=== PATIENT | male | born 1965 | race Caucasian/White ===

== ENCOUNTER → 2017-06-26 09:58 | Outpatient (CLI) | payer BC, SELFPAY ==
--- NOTE | 2017-06-26 10:05 | XR_ITS ---
XR knee LT 3V HISTORY: Knee pain ITS.REASON: OA ORDERING PHYSICIAN: Mingo Borjas MD PATIENT AGE: 51 years COMPARISON: None FINDINGS: No fracture or dislocation. No lytic or blastic change. Normal mineralization. There are mild tricompartmental osteoarthritic changes with small osteophytes. Small suprapatellar effusion also suspected. IMPRESSION: Mild osteoarthritis with knee joint effusion
== END ==
PROVIDERS: PCP Internal Medicine Adolescent Medicine; Visit Provider Internal Medicine Adolescent Medicine
DX: M17.12 Unilateral primary osteoarthritis, left knee (principal)
CPT/HCPCS: 73562

== ENCOUNTER 2017-07-17 15:00 | Outpatient (RCR) | payer BC, SELFPAY | END 2017-07-17 15:01 | disposition home or self-care (01) | LOC: PT 15:00 | PROVIDERS: Family Provider Internal Medicine Adolescent Medicine; PCP Internal Medicine Adolescent Medicine; Visit Provider Orthopaedic Surgery | DX: M25.562 Pain in left knee (principal) | CPT/HCPCS: 97010; 97014; 97033; 97110; G0283 ==

== ENCOUNTER → 2018-02-21 14:29 | Outpatient (CLI) | payer BC, SELFPAY ==
--- NOTE | 2018-02-21 | NVE_ITS ---
Venous Exam Indications: 729.5 Pain in limb. IMPRESSIONS Acute superficial vein thrombosis involving the superficial veins of the left upper extremity History: Left upper extremity pain. Risk factors: Hypertension. Recent trauma. Patient had oral surgery 02/09/18 with multiple IV sticks in the left arm. He was seen in the [facility] 02/20/18 for pain, redness, and heat in the left forearm. He has been treated with antibiotics since the surgery. Left upper extremity venous duplex. Doppler flow study including spectral analysis, color and high scale imaging. Location: Vascular laboratory. Patient status: Outpatient. CRITICAL FINDINGS - Reported to: Dr. Al Trent - Read back and verified. - 02/21/18 - 1530 - XU SVT in cephalic vein Tables: Venous flow and imaging: + + +--------+ Location Flow properties Comments + + +--------+ Left internal jugular Normal phasicity; spontaneous; -------- compressible + + +--------+ Left subclavian Normal phasicity; spontaneous; normal -------- augmentation; compressible + + +--------+ Left axillary Normal phasicity; spontaneous; normal -------- augmentation; compressible + + +--------+ Left brachial Normal phasicity; spontaneous; normal -------- augmentation; compressible + + +--------+ Left cephalic Diminished phasicity; noncompressible SVT seen + + +--------+ Left basilic Normal phasicity ; spontaneous; normal -------- augmentation; compressible + + +--------+ Left radial Compressible -------- + + +--------+ Left ulnar Compressible -------- + + +--------+ Right subclavian Normal phasicity; spontaneous; normal -------- augmentation; compressible + + +--------+ (Report amended ) Electronically signed by: Marty Caro [id number]
== END ==
PROVIDERS: PCP Internal Medicine Adolescent Medicine; Visit Provider Emergency Medicine
DX: T80.1XXA Vascular complications following infusion, transfusion and therapeutic injection, initial encounter (principal); M79.632 Pain in left forearm
CPT/HCPCS: 93971

== ENCOUNTER → 2018-03-04 09:22 | Outpatient (CLI) | payer BC, SELFPAY ==
[2018-03-04 09:50] LABS: Basophils % 0.6 % (0.1-2.0); Eosinophils # 0.1 K/mm3 (0.0-0.4); Eosinophils % 1.1 % (0.1-12.0); Hemoglobin 13.7 g/dL (14.1-18.0); Lymphocytes # 1.8 K/mm3 (0.7-4.5); Lymphocytes % 29.5 K/mm3 (10-50); Mean Corpuscular HGB Conc 31.9 g/dL (31.8-35.4); Mean Corpuscular Hemoglobin 28.2 pg (27.0-31.2); Mean Corpuscular Volume 88.4 fl (80-94); Mean Platelet Volume 7.3 fl (7.4-10.4); Monocytes # 0.5 K/mm3 (0.1-1.0); Monocytes % 7.9 % (1.7-9.3); Neutrophils # 3.8 K/mm3 (1.8-7.8); Neutrophils % 60.9 % (37.0-80.0); Platelet Count 190 K/mm3 (142-424); Red Blood Count 4.87 M/mm3 (4.60-6.20); Red Cell Distribution Width 12.8 % (11.5-17.5); White Blood Count 6.2 K/mm3 (4.8-10.8)
[2018-03-04 10:40] LABS: Alanine Aminotransferase 39 U/L (12-78); Albumin Level 3.2 gm/dL (3.4-5.0); Alkaline Phosphatase 70 U/L (46-116); Anion Gap 9.1 mEq/L (5-15); Aspartate Amino Transferase 19 U/L (15-37); Bilirubin,Total 0.7 mg/dL (0.2-1.0); Blood Urea Nitrogen 13 mg/dL (7-18); Calcium 8.6 mg/dL (8.5-10.1); Carbon Dioxide 32 mmol/L (21.0-32.0); Chloride 107 mmol/L (98-107); Chol/HDL Ratio 5.7 (1-3.5); Cholesterol 171 mg/dL (140-200); Creatinine,Serum 0.95 mg/dL (0.70-1.30); Estimated Glomerular Filt Rate 84 ml/min (>60); Free Thyroxine Index 2.8 ug/dL (5.93-13.13); GFR (African American) 101 ML/MIN (>60); Globulin 3.1 gm/dl (1.3-3.2); Glucose 100 mg/dL (74-106); HDL Cholesterol 30 mg/dL (27-67); LDL Cholesterol 106 mg/dL (0-130); Potassium 4.1 mmoL/L (3.5-5.1); Sodium 144 mmol/L (136-145); T4 (Thyroxine) 8.1 ug/dl (4.7-13.3); Thyroid Stimulating Hormone 1.84 uIU/ml (0.358-3.740); Total Protein,Serum 6.3 gm/dL (6.4-8.2); Triglycerides 174 mg/dL (30-200); Triiodothryronine (T3) Uptake 34 % (31-39); VLDL Cholesterol 35 mg/dL (0-40)
[2018-03-05 17:29] LABS: Testosterone,Total 412 ng/dL (264-916); Vitamin B12 1272 pg/mL (232-1245); Vitamin D 25 Hydroxy 24.3 ng/mL (30.0-100.0)
== END ==
PROVIDERS: PCP Internal Medicine Adolescent Medicine; Visit Provider Internal Medicine Adolescent Medicine
DX: R53.83 Other fatigue (principal); R53.81 Other malaise; N52.9 Male erectile dysfunction, unspecified
CPT/HCPCS: 36415; 80053; 80061; 82607; 82652; 84403; 84436; 84443; 84479; 85025

== ENCOUNTER → 2020-03-12 09:57 | Outpatient (POV) | payer BC, SELFPAY | PROVIDERS: Visit Provider Nurse Practitioner Family | DX: Z00.00 Encounter for general adult medical examination without abnormal findings (principal) ==

== ENCOUNTER → 2020-04-11 14:22 | Outpatient (CLI) | payer BC, SELFPAY ==
[2020-04-11 17:10] LABS: Coronavirus 19 IgG Antibody Negative (Negative); Coronavirus 19 IgM Antibody Negative (Negative)
== END ==
PROVIDERS: Visit Provider Internal Medicine Gastroenterology
DX: Z01.818 Encounter for other preprocedural examination (principal); Z13.810 Encounter for screening for upper gastrointestinal disorder
CPT/HCPCS: 36415; 86328

== ENCOUNTER 2020-04-13 09:27 | Day surgery (SDC) | payer BC, SELFPAY ==
[2020-04-05 15:14] VITALS: BMI 29.4
[2020-04-13] VITALS (7 sets, daily range): BP systolic 142–167; BP diastolic 90–105; PULSE 73–91; RESP 18; TEMP 36.1–36.4; O2SAT 95–99
--- NOTE | 2020-04-13 10:30 | P.PN_ITS ---
[facility] Anesthesia Checklist - Patient Identification Patient Identification: Arm Band - Structural Data Admitted From: Home Planned Operative Procedure/s: egd Consent for Planned Operative Procedure(s) Verified: Yes Verified Documents: Surgical Consent, History and Physical - NPO Status Verified Time NPO: 00:00 - Additional verifications Anesthesia Reactions: No - Airway Assessment C-Spine Mobility Assessed: Yes (mp2) TMJ Mobility Assessed: Yes Dentition: Good Dentition - Neurological Assessment Level of Consciousness: Awake, Alert - Anesthesia Plan Anesthesia Risk discussed: Yes Anesthesia Plan: Verified ASA Class: II Anesthesia Type: MAC [facility] History I have reviewed the patient's past medical history: Yes Medical History: Reports:: Asthma, Hypertension, Lung Disease (asthma) Denies:: Cancer, Diabetes Mellitus Type 1, Diabetes Mellitus Type 2, Internal Pacemaker, MRSA, Seizures *Have you ever received a pneumonia vaccine?: No *Have you received a flu vaccine this season?: No Anesthesia experience/problems:: nac Other Surgeries: Yes: Other. No: Pacemaker Amputation: No Fractures: No - *Social History Last grade of school completed: Advanced degree Smoking Status: Never smoker Alcohol Intake: never Substance Use Type: denies use *Occupational Status:: employed Housing: house Household Members: family *Travel in the last 8 weeks: None Family Hx:: No significant family history
--- NOTE | 2020-04-13 10:45 | P.PCN_ITS ---
[facility] Procedure Note Procedure Note:: Upper Endoscopy Procedure Report: Esophagogastroduodenoscopy with cold biopsies, submucosal injection (of Kenalog) and TTS balloon dilation Endoscopost: Chico Shay II, MD Referring Physician: Mingo Borjas M.D. Date of Procedure: April 13, 2020 Equipment: Olympus GIF 180 standard upper endoscope Sedation: MAC sedation Indications: Mr. Ortiz is a 54-year-old gentleman who is here for diagnostic/therapeutic upper endoscopy. He does have a history of dysphagia. This is his third or fourth esophageal dilation and most often dilation results in improvement of his swallowing for 1.5 to 2 years. The patient does report dysphagia to primarily solids (beef, steak, breads, etc.). He reports no significant heartburn. He did have a colonoscopy with co in September 2018 which was normal. Procedure: Prior to the procedure, a history and physical exam was performed, and patient's medications and allergies were reviewed. The risks, benefits and alternatives of the sedation and procedure were discussed with the patient. All questions were answered and informed consent was obtained. The patient was brought to the procedure room. Patient identification and proposed procedure were verified by the physician and the nurse. The patient was placed in a left lateral decubitus position and the scope was passed under direct vision. Throughout the procedure, the patient's blood pressure, pulse, and oxygen saturations were monitored continuously. The upper GI endoscopy was accomplished without difficulty. The patient tolerated the procedure well. Findings: The scope was passed directly into the upper esophagus and advanced to the third portion of the duodenum. The post bulbar duodenum and duodenal bulb were normal with normal mucosa and conniventes. The scope was withdrawn through a normal duodenal bulb and pylorus into the stomach. There was very mild reactive gastropathy of the antrum. There was a small 4 mm polyp in the greater curvature and body of the stomach that was removed via cold biopsy. The remainder of the antrum, body and fundus of the stomach were grossly normal. Upon retroflexion there was a very small 1 to 2 cm sliding hiatal hernia. 2 biopsies were taken in the antrum and along the lesser curvature for histology to rule out gastritis and/or H pylori. The scope was then withdrawn into the esophagus. There was a distal Schatzki's ring. Biopsies were taken at the GE junction to rule out reflux esophagitis. Next, 40 mg of Kenalog were injected in 4 aliquots around the circumference of the Schatzki's ring. Subsequent to the Kenalog injection submucosally, the esophagus was dilated to 60 Chinese/20 mm with a TTS hydrostatic balloon with shattering of the Schatzki's ring. The remainder of the esophageal mucosa was normal. Impression: 1. Schatzki's ring status post Kenalog injection and TTS balloon dilation to 20 mm 2. Nonerosive GERD with very small sliding hiatal hernia 3. Diminutive gastric polyp 4. Mild reactive gastropathy Plan: I will follow-up the biopsies. I would recommend omeprazole for 3 months for healing of the Schatzki's ring. The patient should have clinical improvement.
== END 2020-04-13 11:35 | disposition home or self-care (01) ==
LOC: OUTP 09:30
PROVIDERS: PCP Internal Medicine Adolescent Medicine; Visit Provider Internal Medicine Gastroenterology
PROC: 0DJ08ZZ Inspection of Upper Intestinal Tract, Via Natural or Artificial Opening Endoscopic (ICD-10-PCS; CPT 43235; principal; 2020-04-13 10:30)
DX: K22.2 Esophageal obstruction (principal); K21.9 Gastro-esophageal reflux disease without esophagitis; K44.9 Diaphragmatic hernia without obstruction or gangrene; K31.7 Polyp of stomach and duodenum; K31.9 Disease of stomach and duodenum, unspecified; J45.909 Unspecified asthma, uncomplicated; I10 Essential (primary) hypertension; Z79.899 Other long term (current) drug therapy
CPT/HCPCS: 43239; 43236; 43249; C1726

== ENCOUNTER → 2020-04-18 14:29 | Outpatient (CLI) | payer BC, SELFPAY ==
[2020-04-18 15:14] LABS: Basophils % 0.5 % (0.1-2.0); Eosinophils # 0.2 K/mm3 (0.0-0.4); Eosinophils % 2.1 % (0.1-12.0); Hematocrit 47.2 % (42.0-52.0); Hemoglobin 15.7 g/dL (14.1-18.0); Lymphocytes % 22.4 % (10-50); Mean Corpuscular HGB Conc 33.3 g/dL (31.8-35.4); Mean Corpuscular Volume 90.3 fl (80-94); Mean Platelet Volume 7.5 fl (7.4-10.4); Monocytes # 0.8 K/mm3 (0.1-1.0); Monocytes % 8.4 % (1.7-9.3); Neutrophils # 5.9 K/mm3 (1.8-7.8); Neutrophils % 66.6 % (37.0-80.0); Platelet Count 230 K/mm3 (142-424); Red Blood Count 5.23 M/mm3 (4.60-6.20); Red Cell Distribution Width 13.2 % (11.5-17.5); White Blood Count 8.9 K/mm3 (4.8-10.8)
[2020-04-18 16:26] LABS: Alanine Aminotransferase 48 U/L (12-78); Albumin Level 4.3 g/dl (3.5-5.0); Albumin/Globulin Ratio 1.4 (1.1-1.8); Alkaline Phosphatase 84 U/L (38-126); Aspartate Amino Transferase 38 U/L (17-59); Bilirubin,Total 1.5 mg/dl (0.2-1.3); Blood Urea Nitrogen 13 mg/dl (9-20); Calcium 9.4 mg/dl (8.4-10.2); Carbon Dioxide 33 mmol/L (22.0-30.0); Chloride 101 mmol/L (98-107); Chol/HDL Ratio 5.7 (1-3.5); Cholesterol 227 mg/dl (140-200); Estimated Glomerular Filt Rate 78 ml/min (>60); GFR (African American) 95 ML/MIN (>60); Globulin 3.1 g/dL (1.3-3.2); Glucose 82 mg/dl (74-100); HDL Cholesterol 40 mg/dl (40-60); Sodium 141 mmol/L (136-145); Total Protein,Serum 7.4 g/dl (6.3-8.2); Triglycerides 297 mg/dl (30-150); VLDL Cholesterol 59 mg/dL (0-40)
[2020-04-18 16:37] LABS: Direct LDL Cholesterol 144.14 mg/dL (100-129)
[2020-04-18 16:59] LABS: Thyroid Stimulating Hormone 1.45 uIU/mL (0.465-4.68)
[2020-04-18 17:17] LABS: Vitamin B12 847 pg/mL (239-931)
[2020-04-19 15:43] LABS: 25-OH Vitamin D, Total 31.2 ng/mL (30-100)
[2020-04-20 11:17] LABS: Covid-19 Nasal PCR Sendout Lex Not Detected
== END ==
PROVIDERS: Visit Provider Internal Medicine Adolescent Medicine
DX: Z03.818 Encounter for observation for suspected exposure to other biological agents ruled out (principal); R60.0 Localized edema; R53.83 Other fatigue; R53.81 Other malaise
CPT/HCPCS: 36415; 80053; 80061; 82306; 82607; 82652; 83880; 84443; 85025; U0003; U0004

== ENCOUNTER → 2020-07-18 14:29 | Outpatient (CLI) | payer BC, SELFPAY ==
--- NOTE | 2020-07-18 14:35 | XR_ITS ---
PROCEDURE: XR KNEE nonweightbearing LT 3V CLINICAL INDICATION: OSTEOARTHRITIS Osteoarthritis, posterior knee pain exacerbated after exertion especially after climbing stairs COMPARISON: CR [id number] XR knee LT 3V from 06/26/2017 FINDINGS: There is mild narrowing of the medial compartment of the left knee. There are marginal osteophytes. There is no fracture or dislocation. There is a small joint space effusion. IMPRESSION: Small joint space effusion and scattered degenerative change. Consider weight-bearing knee x-rays for further evaluation joint space narrowing. Dictated by: Yesenia Johnson MD 07/18/2020 15:29 Yesenia Johnson MD in [place] 07/18/2020 15:29
--- NOTE | 2020-07-18 14:35 | XR_ITS ---
PROCEDURE: XR HAND LT MIN 3V CLINICAL INDICATION: OSTEOARTHRITIS No injury COMPARISON: None FINDINGS: There are moderate degenerative changes at the left 1st carpal metacarpal articulation. There are severe degenerative changes at the right 1st carpal metacarpal articulation with subluxation and osteophytosis and carpometacarpal joint space narrowing. There is no involvement of the scaphoid triquetrum joint space. An ossicle adjacent to the right 1st carpal metacarpal articulation may be secondary to prior avulsion injury, or a could represent a degenerative ossicle. Partial visualization of the bilateral structures of the bilateral wrists is unremarkable. IMPRESSION: Bilateral right greater than left 1st carpometacarpal degenerative change. Dictated by: Yesenia Johnson MD 07/18/2020 15:33 Yesenia Johnson MD in [place] 07/18/2020 15:33
== END ==
PROVIDERS: PCP Internal Medicine Adolescent Medicine; Visit Provider Internal Medicine Adolescent Medicine
DX: M19.042 Primary osteoarthritis, left hand (principal); M19.041 Primary osteoarthritis, right hand; M25.562 Pain in left knee
CPT/HCPCS: 73130; 73562

== ENCOUNTER → 2020-08-07 12:24 | Outpatient (CLI) | payer BC, SELFPAY ==
--- NOTE | 2020-08-07 12:31 | XR_ITS ---
PROCEDURE: XR KNEE LT 4V CLINICAL INDICATION: left knee pain; weightbearing COMPARISON: CR [id number] XR knee LT 3V from 06/26/2017 CR XR KNEE LT 3V from 07/18/2020 FINDINGS: Osteoarthritic change involves all 3 compartments. Prominent spurs are present at the tibial spines. Small knee joint effusion is present in the suprapatellar region. No fracture or dislocation. No lytic or blastic change other findings:None. IMPRESSION: Overall no change in the tricompartmental osteoarthritis with knee joint effusion Dictated by: Sundar Moore MD 08/07/2020 15:28 Sundar Moore MD in [place] 08/07/2020 15:28
== END ==
PROVIDERS: PCP Internal Medicine Adolescent Medicine; Visit Provider Orthopaedic Surgery
DX: M25.562 Pain in left knee (principal)
CPT/HCPCS: 73564

== ENCOUNTER 2020-12-02 12:43 | Emergency (ER) | payer BC, SELFPAY ==
[2020-12-02 13:09] VITALS: BP 110/72; PULSE 61; RESP 16; TEMP 36.8; O2SAT 97; BMI 29.8
--- NOTE | 2020-12-02 13:15 | XR_ITS ---
PROCEDURE INFORMATION: Exam: XR Chest Exam date and time: 12/02/2020 1:15 PM Age: 55 years old Clinical indication: Cough TECHNIQUE: Imaging protocol: XR of the chest. Views: 2 views. COMPARISON: CR CXR CHEST(2 VIEWS-NOT PORTABLE) 12/29/2016 11:02 PM FINDINGS: Lungs: Unremarkable. No consolidation. Pleural spaces: Unremarkable. No pleural effusion. No pneumothorax. Heart/Mediastinum: Unremarkable. No cardiomegaly. Bones/joints: Unremarkable. IMPRESSION: No acute cardiopulmonary disease.
--- NOTE | 2020-12-02 14:21 | HMH.EDUTC ---
[facility] [place] Disposition Clinical Impression: Acute bronchitis Qualifiers: Bronchitis organism: unspecified organism Qualified Code(s): J20.9 - Acute bronchitis, unspecified Sinusitis Qualifiers: Sinusitis location: unspecified location Chronicity: acute Recurrence: non-recurrent Qualified Code(s): J01.90 - Acute sinusitis, unspecified Disposition: Home, Self-Care Condition on Discharge: Good Instructions: DI for Acute Bronchitis Additional Instructions: Stop the antibiotic that you are on. Start the azithromycin today. Drink plenty of fluids. Take tylenol or ibuprofen for pain or fever. Take the medications as directed. Follow up with your regular doctor. GO TO THE ER FOR ANY WORSENING SYMPTOMS Don't start the oral steroids until tomorrow, since you had the shot here today. The cough medication (promethazine dm) will make you drowsy, so don't drive or operate heavy machinery after taking it. Prescriptions: Promethazine/Dextromethorphan [Promethazine-Dm Syrup] 5 ml PO Q6HP PRN #240 syrup PRN Reason: Cough Transmission Status: Received by [id number] methylPREDNISolone [Medrol] 4 mg PO DIRECTED 6 Days #21 tab.ds.pk Transmission Status: Received by [id number] Azithromycin [Z-Lewis 250mg Tab*] 250 mg PO UD DOSE PK #6 tab Transmission Status: Received by [id number] Referrals: Mingo Borjas MD [Primary Care Provider] - Time of Disposition: 14:26 Medical Decision Making - Medical Records Medical records reviewed: No: I reviewed the patient's medical records. - Rodrigo Inquiry Pt receiving controlled substance: No Vital Signs: 12/02/20 13:09 12/02/20 14:36 Temperature 98.2 F 98 F Temperature Source Oral Pulse Rate 69 Pulse Rate [Left] 61 Respiratory Rate 16 18 Blood Pressure 114/78 Blood Pressure [Right Arm] 110/72 Blood Pressure Mean [Right Arm] 84 02 Sat by Pulse Oximetry 97 Orders (Tests/Meds): ED MEDICATIONS Discontinued Medications Generic Name Dose Route Start Last Admin Trade Name Freq PRN Reason Stop Dose Admin Ceftriaxone Sodium 1 gm 12/02/20 14:09 12/02/20 14:20 Ceftriaxone 1gm Vial IM 12/02/20 14:10 1 gm ONCE ONE Administration Protocol Lidocaine HCl 0 ml 12/02/20 14:09 12/02/20 14:21 Lidocaine 1% 5ml Pf Vial IM 12/02/20 14:10 2.5 ml ONCE ONE Administration Methylprednisolone Sodium Succinate 125 mg 12/02/20 14:09 12/02/20 14:21 Methylprednisolone Sod Succ 125mg Vial IM 12/02/20 14:10 125 mg ONCE ONE Administration - Radiology Data #1 Image(s): Chest Image Reviewed: Yes I reviewed the patient's radiology image, Yes I have reviewed radiologist's interpretation Preliminary Findings: No Infiltrates Seen PROCEDURE INFORMATION: Exam: XR Chest Exam date and time: 12/02/2020 1:15 PM Age: 55 years old Clinical indication: Cough TECHNIQUE: Imaging protocol: XR of the chest. Views: 2 views. COMPARISON: CR CXR CHEST(2 VIEWS-NOT PORTABLE) 12/29/2016 11:02 PM FINDINGS: Lungs: Unremarkable. No consolidation. Pleural spaces: Unremarkable. No pleural effusion. No pneumothorax. Heart/Mediastinum: Unremarkable. No cardiomegaly. Bones/joints: Unremarkable. IMPRESSION: No acute cardiopulmonary disease. [facility] [place] HPI - General Stated complaint: congestion,sore throat,cough,ear pain Time Seen by Provider: 12/02/20 13:30 Mode of Arrival: Ambulatory Source of Information: Patient Limitations: No Limitations Description of Symptoms (Recalled from Triage Doc. by RN): pt was dx with bronchitis three days ago. he was put on an antibiotic but states it is not helping him. HEENT Symptoms (Recalled from RN notes): Yes (ISIDRO and ear aches) Resp Symptoms (Recalled from RN notes): Yes (cough) Skin Symptoms (Recalled from RN notes): No MS Symptoms (Recalled from RN notes): No Functional Status (Recalled from R
[2020-12-02 14:36] VITALS: BP 114/78; PULSE 69; RESP 18; TEMP 36.6
== END 2020-12-02 14:36 | disposition home or self-care (01) ==
PROVIDERS: Emergency Provider Nurse Practitioner Family; PCP Internal Medicine Adolescent Medicine
DX: J20.9 Acute bronchitis, unspecified (principal); J01.90 Acute sinusitis, unspecified; J45.909 Unspecified asthma, uncomplicated; I10 Essential (primary) hypertension; Z79.899 Other long term (current) drug therapy
CPT/HCPCS: 71046; 96372; 99202; G0463

== ENCOUNTER → 2021-01-31 11:15 | Outpatient (CLI) | payer BC, SELFPAY ==
[2021-01-31 11:39] LABS: Basophils # 0.1 K/mm3 (0-0.2); Basophils % 0.6 % (0.1-2.0); Eosinophils # 0.2 K/mm3 (0.0-0.4); Eosinophils % 2.2 % (0.1-12.0); Hematocrit 44.1 % (42.0-52.0); Hemoglobin 14.6 g/dL (14.1-18.0); Lymphocytes # 2.1 K/mm3 (0.7-4.5); Lymphocytes % 24.6 % (10-50); Mean Corpuscular Hemoglobin 30.5 pg (27.0-31.2); Mean Corpuscular Volume 92.4 fl (80-94); Mean Platelet Volume 7.8 fl (7.4-10.4); Monocytes # 0.5 K/mm3 (0.1-1.0); Monocytes % 6.1 % (1.7-9.3); Neutrophils # 5.8 K/mm3 (1.8-7.8); Neutrophils % 66.4 % (37.0-80.0); Platelet Count 243 K/mm3 (142-424); Red Blood Count 4.77 M/mm3 (4.60-6.20); Red Cell Distribution Width 13.3 % (11.5-17.5); White Blood Count 8.7 K/mm3 (4.8-10.8)
[2021-01-31 12:49] LABS: Coronavirus 19 IgG Antibody Negative (Negative); Coronavirus 19 IgM Antibody Negative (Negative)
[2021-01-31 20:39] LABS: Chloride 105 mmol/L (98-107); Potassium 4.2 mmoL/L (3.5-5.1); Sodium 143 mmol/L (136-145)
[2021-01-31 20:42] LABS: Alanine Aminotransferase 44 U/L (12-78); Albumin Level 3.7 g/dl (3.5-5.0); Albumin/Globulin Ratio 1.3 (1.1-1.8); Alkaline Phosphatase 69 U/L (38-126); Anion Gap 10.2 mEq/L (5-15); Aspartate Amino Transferase 41 U/L (17-59); Bilirubin,Total 1.1 mg/dl (0.2-1.3); Blood Urea Nitrogen 8 mg/dl (9-20); Calcium 8.7 mg/dl (8.4-10.2); Carbon Dioxide 32 mmol/L (22.0-30.0); Estimated Glomerular Filt Rate 88 ml/min (>60); GFR (African American) 106 ML/MIN (>60); Globulin 2.8 g/dL (1.3-3.2); Glucose 105 mg/dl (74-100); Total Protein,Serum 6.5 g/dl (6.3-8.2)
== END ==
PROVIDERS: Visit Provider Internal Medicine Adolescent Medicine
DX: Z20.822 Contact with and (suspected) exposure to COVID-19 (principal); J45.30 Mild persistent asthma, uncomplicated
CPT/HCPCS: 36415; 80053; 85025; 86328

== ENCOUNTER 2021-04-17 12:06 | Emergency (ER) | payer BC, SELFPAY ==
[2021-04-17 12:25] VITALS: BP 117/82; PULSE 67; RESP 16; TEMP 37.1; O2SAT 98; BMI 29.8
--- NOTE | 2021-04-17 13:02 | HMH.EDUTC ---
[facility] [place] Clinical Impression: Biliary colic Disposition: Home, Self-Care Condition on Discharge: Good Instructions: DI for Acute Abdominal Pain Referrals: Mingo Borjas MD [Primary Care Provider] - Mason Joe MD [Staff Physician] - Medical Decision Making - Rodrigo Inquiry Pt receiving controlled substance: No Rodrigo was queried for this patient: No Vital Signs: 04/17/21 12:25 04/17/21 13:20 04/17/21 16:53 Temperature 98.7 F 98.4 F 98.4 F Temperature Source Oral Oral Pulse Rate 65 Pulse Rate [Right Brachial] 67 62 Respiratory Rate 16 18 16 Blood Pressure 128/89 Blood Pressure [Right Arm] 117/82 134/95 H Blood Pressure Mean [Right Arm] 93 108 Blood Pressure Source [Right Arm] Automatic Cuff Automatic Cuff Blood Pressure Position [Right Arm] Sitting Sitting 02 Sat by Pulse Oximetry 98 97 Oxygen Delivery Method Room Air Room Air Room Air - Lab Data Lab Results 04/17/21 14:16: WBC 7.2, RBC 5.40, Hgb 16.1, Hct 50.0, MCV 92.5, MCH 29.8, MCHC 32.2, RDW 13.0, Plt Count 263, MPV 8.7, Neut % (Auto) 66.6, Lymph % (Auto) 23.8, [place] % (Auto) 6.8, Eos % (Auto) 2.0, Baso % (Auto) 0.7, Neut # (Auto) 4.8, Lymph # (Auto) 1.7, [place] # (Auto) 0.5, Eos # (Auto) 0.2, Baso # (Auto) 0.1 04/17/21 14:16: Sodium 142, Potassium 4.4, Chloride 103, Carbon Dioxide 35 H, Anion Gap 8.4, BUN 11, Creatinine 1.00, Estimated Creat Clear 134, Estimated GFR 78, Est GFR ( Amer) 94, Glucose 105 H, Calcium 9.3, Total Bilirubin 2.2 H, AST 51, ALT 48, Alkaline Phosphatase 63, Total Protein 7.4, Albumin 4.2, Globulin 3.2, Albumin/Globulin Ratio 1.3, Lipase 66 04/17/21 14:16: Lactate 0.9 Result diagrams: 04/17/21 14:16 04/17/21 14:16 Orders (Tests/Meds): ED MEDICATIONS Discontinued Medications Generic Name Dose Route Start Last Admin Trade Name Zurdo PRN Reason Stop Dose Admin Iopamidol 75 ml 04/17/21 15:33 04/17/21 15:35 Iopamidol-370 (76%);100ml Bottle IV 04/17/21 15:34 75 ml ONCE ONE Administration Sodium Chloride 10 ml 04/17/21 15:33 04/17/21 15:34 Sodium Chloride 0.9% 10ml Syr (Rad Only) IV 04/17/21 15:34 10 ml ONCE ONE Administration Medical Decision Narrative: Due to patient complaints of abdominal pain and swelling in abdomen recommended transfer to the ED for further work up and evaluation and patient agreed Called ED and spoke with staff and patient assigned room 8 Patient was moved to room 8 without complications [facility] [place] - General Stated complaint: stomach pains Time Seen by Provider: 04/17/21 13:02 Mode of Arrival: Ambulatory Source of Information: Patient Limitations: No Limitations Description of Symptoms (Recalled from Triage Doc. by RN): PATIENT C/O EPIGASTRIC PAIN, WEAKNESS, NAUSEA, FATIGUE, STIFF NECK, AND BLOATING/TENDERNESS TO ABDOMEN ON AND OFF X 1 MONTH HEENT Symptoms (Recalled from RN notes): No Resp Symptoms (Recalled from RN notes): No Skin Symptoms (Recalled from RN notes): No MS Symptoms (Recalled from RN notes): No Functional Status (Recalled from RN notes): WNL - History of Present Illness Provider Complaint: Patient states that he has been having stomach issues on and off for about a month States that for the last week he has been having pain in his upper abdominal area and feels like he is bloated and swollen States that a few days ago he felt like he had some pain that went up into his left underarm/chest area and thought it was just heart burn States that today he was feeling more unconfortable and feels like his stomach swollen and tender to the touch with dull achy like feeling like a band is around his upper stomach - Related Data Home Medications Medication Instructions Recorded Confirmed albuterol sulfate 90 mcg/actuation 1 puff INHALATION Q6HP PRN 90 Days 05/26/18 11/07/20 aerosol inhaler #25 g Tiotropium Cartwright [Spiriva 1 puff IH DAILY 06/25/18 11/07/20 18mcg/puff inhaler] Amlodipine Besylate [Amlodipine 10 mg PO
[2021-04-17 13:20] VITALS: BP 134/95; PULSE 62; RESP 18; TEMP 36.9; O2SAT 97; BMI 30.9
--- NOTE | 2021-04-17 13:20 | PC.NURSE ---
PATIENT SENT TO ER PER Savage THOMAS APRN FOR FURTHER EVALUATION. REPORT GIVEN TO Som GAVIRIA RN
--- NOTE | 2021-04-17 14:00 | CT_ITS ---
PROCEDURE: CT ABDOMEN PELVIS W CON CLINICAL INDICATION: Abdominal Pain COMPARISON: No exams were available for comparison TECHNIQUE: IV Contrast: 75ML Isovue 370 Oral Contrast None Axial images obtained with sagittal and coronal reformats. All CT scans at the facility use one or more dose reduction, viz: automated exposure control, ma/kV adjustment per patient size (including targeted exams where dose is matched to indication, i.e. head), or iterative reconstruction technique. FINDINGS: LOWER THORAX: No acute finding ABDOMEN & PELVIS: Fatty liver. Small hyperdensity is present along the posterior aspect of the gallbladder suggesting a small stone. Spleen, adrenal glands, pancreas, and kidneys have an unremarkable appearance. No renal or ureteral calculi. Unremarkable appendix. No intestinal obstruction or free air. Small bilateral inguinal hernias containing fat Osteoarthritic changes of the hips. Degenerative disc disease L5-S1 with endplate osteophytes and bilateral foraminal narrowing with facet hypertrophy. IMPRESSION: Possible small gallstone with fatty liver with additional nonacute findings as described above. Dictated by: Sundar Moore MD 04/17/2021 16:06 Sundar Moore MD in [place] 04/17/2021 16:06
[2021-04-17 14:47] LABS: Basophils # 0.1 K/mm3 (0-0.2); Basophils % 0.7 % (0.1-2.0); Eosinophils # 0.2 K/mm3 (0.0-0.4); Hemoglobin 16.1 g/dL (14.1-18.0); Lymphocytes # 1.7 K/mm3 (0.7-4.5); Lymphocytes % 23.8 % (10-50); Mean Corpuscular HGB Conc 32.2 g/dL (31.8-35.4); Mean Corpuscular Hemoglobin 29.8 pg (27.0-31.2); Mean Corpuscular Volume 92.5 fl (80-94); Mean Platelet Volume 8.7 fl (7.4-10.4); Monocytes # 0.5 K/mm3 (0.1-1.0); Monocytes % 6.8 % (1.7-9.3); Neutrophils # 4.8 K/mm3 (1.8-7.8); Neutrophils % 66.6 % (37.0-80.0); Platelet Count 263 K/mm3 (142-424); White Blood Count 7.2 K/mm3 (4.8-10.8)
[2021-04-17 15:20] LABS: Lactic Acid 0.9 mmol/L (0.7-2.1)
[2021-04-17 15:21] LABS: Alanine Aminotransferase 48 U/L (12-78); Albumin Level 4.2 g/dl (3.5-5.0); Albumin/Globulin Ratio 1.3 (1.1-1.8); Alkaline Phosphatase 63 U/L (38-126); Anion Gap 8.4 mEq/L (5-15); Aspartate Amino Transferase 51 U/L (17-59); Bilirubin,Total 2.2 mg/dl (0.2-1.3); Blood Urea Nitrogen 11 mg/dl (9-20); Calcium 9.3 mg/dl (8.4-10.2); Carbon Dioxide 35 mmol/L (22.0-30.0); Chloride 103 mmol/L (98-107); Creatinine Clearance Estimated 134 mL/min (50-200); Estimated Glomerular Filt Rate 78 ml/min (>60); GFR (African American) 94 ML/MIN (>60); Globulin 3.2 g/dL (1.3-3.2); Glucose 105 mg/dl (74-100); Lipase 66 U/L (23-300); Potassium 4.4 mmoL/L (3.5-5.1); Sodium 142 mmol/L (136-145); Total Protein,Serum 7.4 g/dl (6.3-8.2)
--- NOTE | 2021-04-17 15:37 | HMH.EDABDPAI ---
ED Disposition Clinical Impression: Biliary colic Disposition: Home, Self-Care Condition on Discharge: Fair Instructions: DI for Acute Abdominal Pain Referrals: Mingo Borjas MD [Primary Care Provider] - Mason Joe MD [Staff Physician] - - Critical Care Critical Care Time: No Attestation: On 04/17/21, the high probability of a clinically significant, sudden or life threatening deterioration of the following system(s) required my full and direct attention, intervention and personal management. The time I documented below is in addition to time spent performing reported procedures but includes the following listed in this critical care notation. Medical Decision Making - Rodrigo Inquiry Pt receiving controlled substance: No Vital Signs: 04/17/21 12:25 04/17/21 13:20 Temperature 98.7 F 98.4 F Temperature Source Oral Oral Pulse Rate [Right Brachial] 67 62 Respiratory Rate 16 18 Blood Pressure [Right Arm] 117/82 134/95 H Blood Pressure Mean [Right Arm] 93 108 Blood Pressure Source [Right Arm] Automatic Cuff Automatic Cuff Blood Pressure Position [Right Arm] Sitting Sitting 02 Sat by Pulse Oximetry 98 97 Oxygen Delivery Method Room Air Room Air - Lab Data Lab Results 04/17/21 14:16: WBC 7.2, RBC 5.40, Hgb 16.1, Hct 50.0, MCV 92.5, MCH 29.8, MCHC 32.2, RDW 13.0, Plt Count 263, MPV 8.7, Neut % (Auto) 66.6, Lymph % (Auto) 23.8, [place] % (Auto) 6.8, Eos % (Auto) 2.0, Baso % (Auto) 0.7, Neut # (Auto) 4.8, Lymph # (Auto) 1.7, [place] # (Auto) 0.5, Eos # (Auto) 0.2, Baso # (Auto) 0.1 04/17/21 14:16: Sodium 142, Potassium 4.4, Chloride 103, Carbon Dioxide 35 H, Anion Gap 8.4, BUN 11, Creatinine 1.00, Estimated Creat Clear 134, Estimated GFR 78, Est GFR ( Amer) 94, Glucose 105 H, Calcium 9.3, Total Bilirubin 2.2 H, AST 51, ALT 48, Alkaline Phosphatase 63, Total Protein 7.4, Albumin 4.2, Globulin 3.2, Albumin/Globulin Ratio 1.3, Lipase 66 04/17/21 14:16: Lactate 0.9 Result diagrams: 04/17/21 14:16 04/17/21 14:16 Orders (Tests/Meds): ED MEDICATIONS Discontinued Medications Generic Name Dose Route Start Last Admin Trade Name Zurdo PRN Reason Stop Dose Admin Iopamidol 75 ml 04/17/21 15:33 04/17/21 15:35 Iopamidol-370 (76%);100ml Bottle IV 04/17/21 15:34 75 ml ONCE ONE Administration Sodium Chloride 10 ml 04/17/21 15:33 04/17/21 15:34 Sodium Chloride 0.9% 10ml Syr (Rad Only) IV 04/17/21 15:34 10 ml ONCE ONE Administration Medical Decision Narrative: Patient is a 55-year-old male with past medical history of hypertension presenting to the ED with abdominal pain. Patient is awake, alert, not in acute distress. Patient is hemodynamically stable, afebrile. Patient's physical exam is remarkable for tenderness to palpation in the right upper quadrant, epigastrium. Differential moves but not limited to cholelithiasis, acute cholangitis, pancreatitis, gallstone pancreatitis, gastritis.CBC, CMP, lipase, lactate is performed. Pelvis is performed. CT abdomen pelvis remarkable for small gallstones with no evidence of cholecystitis. Work unremarkable except for mildly elevated bilirubin. Patient is scheduled an appointment with general surgery. He is to follow-up with them for further management including possible surgical management. He is understanding of this. He is given strict return precautions and follow-up instructions. Abdominal Pain HPI - General Chief Complaint: Abdominal Pain Stated Complaint: stomach pains Time Seen by Provider: 04/17/21 13:02 Mode of Arrival: Ambulatory Source of Information: Patient Limitations: No Limitations Description of Symptoms (Recalled from ER Triage Doc. by RN): pt c/o upper abd pain and nausea x3 days. Pt reports also just not feeling well. - History of Present Illness HPI narrative: Patient is a 55-year-old male with medical history of hypertension presenting to the ED with no pain. Patient states that his pain is located in the e
[2021-04-17 16:53] VITALS: BP 128/89; PULSE 65; RESP 16; TEMP 36.9; O2SAT 98
== END 2021-04-17 16:55 | disposition home or self-care (01) ==
LOC: UTC 13:17 → ER 13:40
PROVIDERS: Emergency Provider Emergency Medicine; PCP Internal Medicine Adolescent Medicine
DX: R10.13 Epigastric pain (principal); R10.10 Upper abdominal pain, unspecified; I10 Essential (primary) hypertension
CPT/HCPCS: 74177; 80053; 83605; 83690; 85025; 99283; Q9967

== ENCOUNTER → 2021-04-22 12:02 | Outpatient (CLI) | payer BC, SELFPAY ==
[2021-04-22 13:27] LABS: Alanine Aminotransferase 45 U/L (12-78); Albumin Level 4.2 g/dl (3.5-5.0); Albumin/Globulin Ratio 1.6 (1.1-1.8); Alkaline Phosphatase 61 U/L (38-126); Anion Gap 7.6 mEq/L (5-15); Aspartate Amino Transferase 54 U/L (17-59); Bilirubin,Total 1.2 mg/dl (0.2-1.3); Blood Urea Nitrogen 11 mg/dl (9-20); Calcium 9.3 mg/dl (8.4-10.2); Carbon Dioxide 34 mmol/L (22.0-30.0); Chloride 104 mmol/L (98-107); Chol/HDL Ratio 6.5 (1-3.5); Cholesterol 207 mg/dl (140-200); Estimated Glomerular Filt Rate 88 ml/min (>60); GFR (African American) 106 ML/MIN (>60); Globulin 2.7 g/dL (1.3-3.2); Glucose 107 mg/dl (74-100); HDL Cholesterol 32 mg/dl (40-60); Potassium 4.6 mmoL/L (3.5-5.1); Sodium 141 mmol/L (136-145); Total Protein,Serum 6.9 g/dl (6.3-8.2); Triglycerides 180 mg/dl (30-150); VLDL Cholesterol 36 mg/dL (0-40)
[2021-04-22 13:38] LABS: Direct LDL Cholesterol 140.52 mg/dL (100-129)
[2021-04-22 13:58] LABS: Prostate Specific Ag Screen 2.1 ng/ml (0.0-4.0)
[2021-04-22 14:16] LABS: Vitamin B12 871 pg/mL (239-931)
[2021-04-22 15:20] LABS: Thyroid Stimulating Hormone 1.77 uIU/mL (0.465-4.68)
[2021-04-23 11:12] LABS: Testosterone,Total 420 ng/dL (264-916)
== END ==
PROVIDERS: Visit Provider Nurse Practitioner Family
DX: Z00.00 Encounter for general adult medical examination without abnormal findings (principal); R53.81 Other malaise; Z12.5 Encounter for screening for malignant neoplasm of prostate
CPT/HCPCS: 36415; 80053; 80061; 82607; 84403; 84443; G0103

== ENCOUNTER → 2021-04-24 08:51 | Outpatient (CLI) | payer BC, SELFPAY ==
--- NOTE | 2021-04-24 09:22 | US_ITS ---
PROCEDURE: US ABDOMEN LIMITED CLINICAL INDICATION: RUQ PAIN COMPARISON: CT CT ABDOMEN PELVIS W CON from 04/17/2021 FINDINGS: PANCREAS: Unremarkable. No obvious mass or abnormal fluid collection. No ductal dilatation LIVER: Diffuse increased echogenicity of the liver with poor through transmission of sound consistent with hepatic steatosis. No focal liver lesion demonstrated. There is appropriate direction of blood flow. Portal vein is upper normal at 14 mm.. RIGHT KIDNEY: Unremarkable. Normal size and echogenicity. No hydronephrosis GALLBLADDER: At least 2 small stones present in the gallbladder. No gallbladder wall thickening, pericholecystic fluid, or biliary dilatation. Common bile duct is 3 mm. IMPRESSION: Cholelithiasis. Fatty liver with portal vein upper limits of normal Dictated by: Sundar Moore MD 04/24/2021 15:46 Sundar Moore MD in [place] 04/24/2021 15:46
== END ==
PROVIDERS: PCP Internal Medicine Adolescent Medicine; Visit Provider Nurse Practitioner Family
DX: R10.11 Right upper quadrant pain (principal)
CPT/HCPCS: 76705

== ENCOUNTER → 2021-05-23 09:46 | Outpatient (CLI) | payer BC, SELFPAY ==
--- NOTE | 2021-05-23 09:53 | XR_ITS ---
PROCEDURE: XR KNEE RT 4V CLINICAL INDICATION: right knee pain COMPARISON: CR [id number] XR knee LT 3V from 06/26/2017 CR XR KNEE LT 3V from 07/18/2020 CR XR KNEE LT 4V from 08/07/2020 FINDINGS: Mild osteoarthritic changes are present involving all 3 compartments. No fracture or dislocation. No lytic or blastic change. Other findings:None. IMPRESSION: Mild osteoarthritis Dictated by: Sundar Moore MD 05/23/2021 12:21 Sundar Moore MD in [place] 05/23/2021 12:21
== END ==
PROVIDERS: PCP Internal Medicine Adolescent Medicine; Visit Provider Orthopaedic Surgery
DX: M25.561 Pain in right knee (principal)
CPT/HCPCS: 73564

== ENCOUNTER → 2021-11-05 09:30 | Outpatient (CLI) | payer BC, SELFPAY ==
--- NOTE | 2021-11-05 09:34 | XR_ITS ---
FINAL REPORT CLINICAL HISTORY: knee pain COMPARISON: August 07, 2020 FINDINGS: LEFT KNEE 3 views of the left knee were obtained. There is no acute fracture or dislocation. There are mild to moderate degenerative changes. Visualized joint spaces are normally aligned. There is a small joint effusion. IMPRESSION: Overall stable exam. Reviewed, Interpreted and Dictated by Cristopher Batres III, MD Transcribed by Asuncion Welch Authenticated and . [facility]
--- NOTE | 2021-11-05 09:34 | XR_ITS ---
FINAL REPORT CLINICAL HISTORY: knee pain COMPARISON: May 23, 2021 FINDINGS: RIGHT KNEE 3 views of the right knee were obtained. There is no acute fracture or dislocation. There are [id number] degenerative changes which are greatest involving the medial compartment with medial compartment narrowing. There is a small joint effusion. IMPRESSION: Degenerative change as described, visually stable from the prior. Reviewed, Interpreted and Dictated by Cristopher Batres III, MD Transcribed by Asuncion Welch Authenticated and [facility]
== END ==
PROVIDERS: PCP Internal Medicine Adolescent Medicine; Visit Provider Orthopaedic Surgery
DX: M17.12 Unilateral primary osteoarthritis, left knee (principal); M17.11 Unilateral primary osteoarthritis, right knee
CPT/HCPCS: 73564

== ENCOUNTER 2022-03-16 19:09 | Emergency (ER) | payer BC, SELFPAY ==
[2022-03-16 19:20] VITALS: BP 152/86; PULSE 101; RESP 18; TEMP 38.3; O2SAT 97; BMI 34.2
[2022-03-16 19:35] VITALS: BP 152/86; PULSE 101; RESP 18; TEMP 38.3; O2SAT 97
[2022-03-16 19:43] LABS: UTC Influenza A Antigen Positive (Negative); UTC Influenza B Antigen Negative (Negative)
--- NOTE | 2022-03-16 19:43 | EXP.UTC ---
Discharge Plan Disposition Patient Disposition: Home, Self-Care Condition: Good Prescriptions Prescriptions: New benzonatate 100 mg capsule 100 mg PO TID PRN (Reason: cough) Qty: 30 0RF amoxicillin-pot clavulanate 500-125 mg Tablet 1 tab PO Q12H Qty: 20 0RF oseltamivir [Tamiflu] 75 mg capsule 75 mg PO Q12H 5 Days Qty: 10 0RF ondansetron HCl 4 mg tablet 4 mg PO Q8H 4 Days Qty: 12 0RF No Action bisoprolol-hydrochlorothiazide 5-6.25 mg tablet 1 tab PO DAILY Label Comments: TAKE 1 TABLET BY MOUTH ONCE DAILY tamsulosin 0.4 mg capsule 0.4 mg PO DAILY Label Comments: TAKE 1 CAPSULE BY MOUTH ONCE DAILY nebivolol 10 mg tablet 10 mg PO DAILY Label Comments: TAKE 1 TABLET BY MOUTH ONCE DAILY Referrals Follow up/Referrals: Mingo Borjas MD [Primary Care Provider] - See instructions Activity Restrictions/Add. Instructions Additional Instructions/Restrictions: Start Tamiflu today if you are going to take it. Discussed risk and possible benefits. Lots of rest Increase Fluids water, Gatorade, powerade, pedialyte,if /toddler/child Alternate Tylenol and / or ibuprofen as discussed for fever, aches, chills Follow up IMMEDIATELY with your family doctor for new or worsening Symptoms OR no noticeable improvement over the next 48-72 hours, 911 for difficulty or breathing You area contagious until no fever, aches, chills for 24 hours with medication for symptoms Help Prevent the spread of influenza: ?Wash your hands often. Use soap and water. Wash your hands after you use the bathroom, change a child's diapers, or sneeze. Wash your hands before you prepare or eat food. Use gel hand cleanser that has 60% alcohol, when soap and water are not available. Do not touch your eyes, nose, or mouth unless you have washed your hands first. Cover your mouth when you sneeze or cough. Cough into a tissue or the bend of your arm. If you use a tissue, throw it away immediately and wash your hands. Clean shared items with a germ-killing engine cleaner. Clean table surfaces, doorknobs, and light switches. Do not share towels, silverware, and dishes with people who are sick. Wash bed sheets, towels, silverware, and dishes with soap and water. Wear a mask over your mouth and nose if you are sick. The face mask may help protect others from becoming infected with the flu. Wear the mask when in common areas of your home or if you seek care with a healthcare provider. Stay away from others if you are sick. Stay at home until 24 hours after your fever and symptoms are gone. Start Antiobitic for your ear infection take as directed Clinical Impressions Clinical Impression: Influenza A Otitis media Qualifiers: Otitis media type: unspecified Laterality: right Qualified Code(s): H66.91 - Otitis media, unspecified, right ear Stand Alone Forms Stand Alone Forms: Work/School Release Instructions Patient Instructions: Middle Ear Infection, Acute Bronchitis, DI for Influenza -- Adult Discharge ED Provider: Jennifer Alonso [facility] General Stated complaint: cough,SOA,citlalli Mode of Arrival: Ambulatory Source of Information: Patient Limitations: No Limitations Time Seen by Provider: 03/16/22 19:44 Description of Symptoms (Recalled from Triage Doc. by RN): PATIENT C/O SOA, HEAD PRESSURE, LUNG PAIN, AND WEAKNESS X 2 DAYS. HE STATES HE GETS BRONCHITIS FREQUENTLY HEENT Symptoms (Recalled from RN notes): Yes Resp Symptoms (Recalled from RN notes): Yes Skin Symptoms (Recalled from RN notes): No MS Symptoms (Recalled from RN notes): No Functional Status (Recalled from RN notes): WNL History of Present Illness Provider Complaint: Patient states that he hasnt been feeling well with pain and pressure in his ears and trying to move into his chest he gets bronchitis and pleurisy
== END 2022-03-16 20:27 | disposition home or self-care (01) ==
PROVIDERS: Emergency Provider Nurse Practitioner; PCP Internal Medicine Adolescent Medicine
DX: J10.1 Influenza due to other identified influenza virus with other respiratory manifestations (principal); H66.91 Otitis media, unspecified, right ear; R06.02 Shortness of breath; R53.1 Weakness; R50.9 Fever, unspecified; M79.10 Myalgia, unspecified site; R51.9 Headache, unspecified; I10 Essential (primary) hypertension; E78.5 Hyperlipidemia, unspecified; N40.0 Benign prostatic hyperplasia without lower urinary tract symptoms; J45.909 Unspecified asthma, uncomplicated; F32.A Depression, unspecified; F41.9 Anxiety disorder, unspecified; Z79.899 Other long term (current) drug therapy
CPT/HCPCS: 87804; 96372; 99213; G0463

== ENCOUNTER 2023-10-14 16:43 | Outpatient (CLI) | payer BC, SELFPAY ==
--- NOTE | 2023-10-14 16:47 | XR_ITS ---
PROCEDURE INFORMATION: Exam: XR Chest Exam date and time: 10/14/2023 5:26 PM Age: 57 years old Clinical indication: Other: Hemoptysis TECHNIQUE: Imaging protocol: Radiologic exam of the chest. Views: 2 views. COMPARISON: CR XR CHEST 2V 12/02/2020 1:20 PM FINDINGS: Lungs: Unremarkable. No consolidation. Pleural spaces: Unremarkable. No pleural effusion. No pneumothorax. Heart/Mediastinum: Unremarkable. No cardiomegaly. Bones/joints: Unremarkable. IMPRESSION: No acute findings.
== END 2023-10-14 23:59 | disposition home or self-care (01) ==
LOC: RAD 16:44
PROVIDERS: PCP Internal Medicine Adolescent Medicine; Visit Provider Nurse Practitioner Family
DX: R04.2 Hemoptysis (principal)
CPT/HCPCS: 71046

== ENCOUNTER 2024-01-27 16:58 | Emergency (ER) | payer BC, SELFPAY ==
[2024-01-27 17:10] VITALS: BP 147/101; PULSE 96; RESP 22; TEMP 36.8; O2SAT 96; BMI 23.3
--- NOTE | 2024-01-27 17:24 | EXP.UTC ---
Discharge Plan Disposition Patient Disposition: Home, Self-Care Condition: Good Prescriptions Prescriptions: No Action finasteride 5 mg tablet 5 mg PO DAILY Patient Comments: TAKE 1 TABLET BY MOUTH ONCE DAILY Referrals Follow up/Referrals: Nayely Gregory APRN [Nurse Practitioner] - See instructions Mingo Borjas MD [Primary Care Provider] - See instructions Activity Restrictions/Add. Instructions Additional Instructions/Restrictions: He is alert and oriented X 3 and calm. He does not seem to be a danger to himself or others. Follow up with your primary care provider. GO TO THE ER FOR ANY WORSENING SYMPTOMS OR CONCERNS Clinical Impressions Clinical Impression: Well adult health check Print Language Print Language: Ukrainian Discharge ED Provider: Siddharth Cummings [facility] General Stated complaint: will disclose to provider Mode of Arrival: Ambulatory Source of Information: Patient Limitations: No Limitations Time Seen by Provider: 01/27/24 17:24 Description of Symptoms (Recalled from Triage Doc. by RN): PATIENT STATES FOR THE PAST 4 DAYS HIS HAS BEEN SAYING HE IS CRAZY . HE STATES SHE WILL NOT LET HIM LEAVE THE HOUSE AND HAS HIDDEN HIS PROSTATE MEDICINE FROM HIM, CLAIMING THE MEDICATION IS MAKING HIM CRAZY. PATIENT STATES THAT HE HAS NOT EATING FOR THE PAST FOR DAYS D/T THE STRESS OF THIS SITUATION. PATIENT IS REQUESTING A PAPER STATING THAT HE IS NOT CRAZY. HEENT Symptoms (Recalled from RN notes): No Resp Symptoms (Recalled from RN notes): No Skin Symptoms (Recalled from RN notes): No MS Symptoms (Recalled from RN notes): No Functional Status (Recalled from RN notes): WNL History of Present Illness Provider Complaint: He is here wanting to discuss issues that he is having with his . He states that she is having an anxiety disorder and she does not let him leave home because she states that she is worried about his mental status. He denies any SI and HI. He denies any history of SI or HI. His 2 adult sons are with him and they concur with his story. Related Data Home Medications ?Medication ?Instructions ?Recorded ?Confirmed finasteride 5 mg tablet 5 mg PO DAILY 01/27/24 01/27/24 Allergies Allergy/AdvReac Type Severity Reaction Status Date / Time No Known Allergies Allergy Verified 12/10/21 13:24 Worker's Comp Is this a Worker's Comp case?: No PFSH PFSH Disclaimer: The information contained in this section may have been updated after the patient was seen, as this information can be updated by other users. Medical History (Updated 01/27/24 @ 18:22 by Gloria Cifuentes RN) BPH (benign prostatic hyperplasia) Depression Anxiety Asthma Hyperlipidemia Hypertension Social History (Updated 03/16/22 @ 19:32 by Gloria Cifuentes RN) Smoking Status: Never smoker alcohol intake: never substance use type: denies use current occupational status: employed Travel in the last 8 weeks: None household members: family housing: house current occupation: [employer] Night caffeine: Yes ROS Obtained: Yes All systems reviewed & no additional complaints except as documented Constitutional Constitutional: Denies chills and Denies fever(s) Eyes Eyes: Denies eye discharge ENT Ears, Nose, Mouth, and Throat: Denies dizziness, Denies otalgia and Denies sore throat Cardiovascular Cardiovascular: Denies chest pain Respiratory Respiratory: Denies shortness of breath, Denies chest congestion, Denies cough, Denies stridor and Denies wheezing Gastrointestinal Gastrointestingal: Denies nausea or vomiting Musculoskeletal Musculoskeletal: Reports system reviewed and no additional complaints, except as documented and Denies arthralgias Integumentary/Breasts Skin/Breast: Denies rash Neurologic Neurologic: Denies dizziness and Denies paresthesias Allergic/Immunologic Allergic/Immunologic: Denies wheezing Physical Exam General General appearance: alert and in no apparent dist
[2024-01-27 18:13] VITALS: BP 147/101; PULSE 96; RESP 22; TEMP 36.8; O2SAT 96
== END 2024-01-27 18:21 | disposition home or self-care (01) ==
PROVIDERS: Emergency Provider Nurse Practitioner Family; PCP Internal Medicine Adolescent Medicine
DX: Z00.8 Encounter for other general examination (principal)
CPT/HCPCS: 99211; 99212; G0463

== ENCOUNTER 2024-02-18 23:44 | Observation (INO) | payer BC, SELFPAY ==
[2024-02-18 23:44] VITALS: BP 127/87; PULSE 98; RESP 17; TEMP 36.9; O2SAT 98; BMI 19.5
--- NOTE | 2024-02-18 23:44 | ECG_ITS ---
APPROVED REPORT Exam: Resting ECG HR:95 bpm ECG Measurements Heart Rate 95 AXES WA 167 P 81 QRSd 104 QRS -45 QT 375 T 78 QTc 428 Conclusion SINUS RHYTHM LEFT ANTERIOR FASCICULAR BLOCK [QRS AXIS <= -45, QR IN I, RS IN II] ABNORMAL ECG UNCONFIRMED REPORT Electronically signed by : MARLEN MUKHERJEE, 02/19/2024 06:37:01
[2024-02-19] VITALS (14 sets, daily range): BP systolic 110–162; BP diastolic 65–97; PULSE 54–98; RESP 14–20; TEMP 36.3–37.1; O2SAT 95–99; BMI 19.5
--- NOTE | 2024-02-19 00:23 | CT_ITS ---
PROCEDURE INFORMATION: Exam: CT Abdomen And Pelvis With Contrast Exam date and time: 02/19/2024 1:49 AM Age: 58 years old Clinical indication: Other: Weight loss; Additional info: Unintentional weight loss TECHNIQUE: Imaging protocol: Computed tomography of the abdomen and pelvis with contrast. 3D rendering (Not supervised by radiologist): MIP and/or 3D reconstructed images were created by the technologist. Radiation optimization: All CT scans at this facility use at least one of these dose optimization techniques: automated exposure control; mA and/or kV adjustment per patient size (includes targeted exams where dose is matched to clinical indication); or iterative reconstruction. Contrast material: ISOVUE; Contrast volume: 70 ml; Contrast route: IV; COMPARISON: CT ABDOMEN PELVIS W CON 02/19/2024 1:49 AM FINDINGS: Liver: Normal. No mass. Gallbladder and biliary ducts: Probable dependent noncalcified stones. No ductal dilation. Pancreas: Normal. No ductal dilation. Spleen: Normal. No splenomegaly. Adrenal glands: Normal. No mass. Kidneys and ureters: Normal. No hydronephrosis. Stomach and bowel: Unremarkable. No obstruction. No mucosal thickening. Appendix: No evidence of appendicitis. Intraperitoneal space: Unremarkable. No free air. No significant fluid collection. Vasculature: Unremarkable. No abdominal aortic aneurysm. Lymph nodes: Unremarkable. No enlarged lymph nodes. Urinary bladder: Unremarkable as visualized. Reproductive: Unremarkable as visualized. Bones/joints: Unremarkable. No acute fracture. Soft tissues: Unremarkable. IMPRESSION: Cholelithiasis without acute cholecystitis.
--- NOTE | 2024-02-19 00:23 | CT_ITS ---
PROCEDURE INFORMATION: Exam: CT Head Without And With Contrast Exam date and time: 02/19/2024 1:44 AM Age: 58 years old Clinical indication: Altered mental status/memory loss; Additional info: AMS, psychotic break TECHNIQUE: Imaging protocol: Computed tomography of the head without and with contrast. Radiation optimization: All CT scans at this facility use at least one of these dose optimization techniques: automated exposure control; mA and/or kV adjustment per patient size (includes targeted exams where dose is matched to clinical indication); or iterative reconstruction. Contrast material: ISOVUE; Contrast volume: 80 ml; Contrast route: IV; COMPARISON: CR [id number] XR cervical spine 3V 06/25/2018 7:18 PM FINDINGS: Brain: No hemorrhage. Unremarkable white matter. No mass effect. Cerebral ventricles: No ventriculomegaly. Paranasal sinuses: Visualized sinuses are unremarkable. No fluid levels. Mastoid air cells: Visualized mastoid air cells are well aerated. Bones: Unremarkable. No acute fracture. Soft tissues: Unremarkable. IMPRESSION: No acute intracranial abnormality.
--- NOTE | 2024-02-19 00:23 | CT_ITS ---
PROCEDURE INFORMATION: Exam: CTA Chest With Contrast Exam date and time: 02/19/2024 1:49 AM Age: 58 years old Clinical indication: Pain; Chest pressure; Additional info: Cp, unintentional weight loss TECHNIQUE: Imaging protocol: Computed tomographic angiography of the chest with contrast. Exam focused on the arteries. 3D rendering (Not supervised by radiologist): MIP and/or 3D reconstructed images were created by the technologist. Radiation optimization: All CT scans at this facility use at least one of these dose optimization techniques: automated exposure control; mA and/or kV adjustment per patient size (includes targeted exams where dose is matched to clinical indication); or iterative reconstruction. Contrast material: ISOVUE; Contrast volume: 70 ml; Contrast route: INTRAVENOUS (IV); COMPARISON: CR XR CHEST 2V 10/14/2023 5:26 PM FINDINGS: Pulmonary arteries: Normal. No pulmonary emboli. Aorta: Unremarkable. No aortic aneurysm. No aortic dissection. Lungs: Unremarkable. No consolidation. No masses. Pleural spaces: Unremarkable. No pneumothorax. No pleural effusion. Heart: Unremarkable. No cardiomegaly. No pericardial effusion. Coronary arteries: Coronary atherosclerosis. Lymph nodes: Some calcified hilar and mediastinal lymph nodes are noted. Bones/joints: Unremarkable. No acute fracture. Soft tissues: Unremarkable. IMPRESSION: 1. No evidence of pulmonary embolus or other acute process. 2. Coronary atherosclerosis. 3. Small calcified mediastinal lymph nodes consistent with prior granulomatous disease.
[2024-02-19 00:32] LABS: Basophils % 0.5 % (0.1-2.0); Eosinophils # 0.1 K/mm3 (0.0-0.4); Eosinophils % 0.6 % (0.1-12.0); Hematocrit 50.1 % (42.0-52.0); Hemoglobin 15.8 g/dL (14.1-18.0); Lymphocytes % 24.9 % (10-50); Mean Corpuscular HGB Conc 31.4 g/dL (31.8-35.4); Mean Corpuscular Hemoglobin 29.2 pg (27.0-31.2); Mean Platelet Volume 8.6 fl (7.4-10.4); Monocytes # 0.7 K/mm3 (0.1-1.0); Monocytes % 9.1 % (1.7-9.3); Neutrophils # 5.2 K/mm3 (1.8-7.8); Neutrophils % 64.8 % (37.0-80.0); Platelet Count 241 K/mm3 (142-424); Red Blood Count 5.39 M/mm3 (4.60-6.20)
[2024-02-19 00:35] LABS: Albumin Level 4.6 g/dl (3.5-5.0); Chloride 97 mmol/L (98-107); Sodium 138 mmol/L (136-145)
[2024-02-19] MEDS: droPERidol 5MG/2ML VIAL 2.5 MG IV (00:37)
[2024-02-19 00:38] LABS: Alanine Aminotransferase 39 U/L (12-78); Albumin/Globulin Ratio 1.6 (1.1-1.8); Alkaline Phosphatase 67 U/L (38-126); Anion Gap 8.3 mEq/L (5-15); Aspartate Amino Transferase 57 U/L (17-59); Bilirubin,Total 3.4 mg/dl (0.2-1.3); Blood Urea Nitrogen 13 mg/dl (9-20); Calcium 9.5 mg/dl (8.4-10.2); Carbon Dioxide 35 mmol/L (22.0-30.0); Creatinine Clearance Estimated 93 mL/min (50-200); Estimated Glomerular Filt Rate 87 ml/min (>60); GFR (African American) 105 ML/MIN (>60); Globulin 2.9 g/dL (1.3-3.2); Glucose 130 mg/dl (74-100); Total Protein,Serum 7.5 g/dl (6.3-8.2)
[2024-02-19 00:39] LABS: INR 0.98 (0.9-1.1); Lipase 211 U/L (23-300); Magnesium 1.9 mg/dl (1.6-2.3)
--- NOTE | 2024-02-19 00:40 | PC.NURSE ---
in room with pt arguing, pt becoming very anxious and crying, asked to go to lobby so pt could calm down. She verbalized understanding
[2024-02-19 00:42] LABS: Ethyl Alcohol < 10 mg/dl (0-10)
[2024-02-19 00:43] LABS: Acetaminophen < 10 ug/ml (10-30); Potassium 2.3 mmoL/L (3.5-5.1); Salicylate < 1.0 mg/dL (2.0-20.0)
[2024-02-19 00:45] LABS: HIV (1&2) Antibody Rapid NONREACTIVE (NONREACTIVE)
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
[2024-02-19 00:51] LABS: Troponin I < 0.01 ng/ml (0.00-0.034)
[2024-02-19] MEDS: LORazepam 2MG/ML VIAL 2 MG IV (01:14)
[2024-02-19] MEDS: POTASSIUM CHLORIDE 20MEQ TAB 40 MEQ PO ×5 (01:15→23:02)
[2024-02-19] MEDS: diphenhydrAMINE 50MG/ML VIAL 50 MG IV (01:15)
[2024-02-19] MEDS: SODIUM CHLORIDE 0.9% 10ML SYR (RAD ONLY) 10 ML IV (01:59)
[2024-02-19] MEDS: IOPAMIDOL-370 (76%);100ML BOTTLE 150 ML IV (01:59)
[2024-02-19] MEDS: 0.9 % SODIUM CHLORIDE 50 ML VIAL IV (01:59)
[2024-02-19 02:07] LABS: Microscopic, Urine URINE MICROSCOPIC (MICROSCOPIC)
[2024-02-19 02:08] LABS: Appearance,Urine CLEAR (Clear); Blood, Urine Negative (Negative); Color,Urine DARK YELLOW (Yellow); Glucose,Urine (UA) Negative (Negative); Ketones,Urine 2+ (Negative); Leukocyte Esterase,Urine Negative (Negative); Nitrate,Urine Negative (Negative); Protein,Urine 2+ (Negative); Specific Gravity, Urine >= 1.030 (1.005-1.030)
[2024-02-19 02:11] LABS: Bilirubin,Urine Negative (Negative)
[2024-02-19 02:21] LABS: Barbiturates Screen,Urine Negative ng/ml (<200)
[2024-02-19 02:22] LABS: Amphetamine/Metha Screen,Urine Negative ng/ml (<1000); Benzodiazepines Screen,Urine Negative ng/ml (<200)
[2024-02-19 02:23] LABS: Cannabinoid Screen,Urine Positive ng/ml (<50)
[2024-02-19 02:24] LABS: Bacteria,Urine Trace /lpf; Cocaine Screen,Urine Negative ng/ml (<300); Methadone Screen,Urine Negative ng/ml (<300); Mucus,Urine 1+ /lpf; Squamous Epithelial Cell,Urine Occasional #/hpf (0-5)
[2024-02-19 02:25] LABS: Opiate Screen,Urine Negative ng/ml (<300)
[2024-02-19 02:26] LABS: Phencyclidine Screen,Urine Negative ng/ml (<25)
[2024-02-19 02:26] LABS: Magnesium 1.9 mg/dl (1.6-2.3)
[2024-02-19] MEDS: KCl 10mEq/100ml 100 ML 100 MEQ IV ×4 (02:32→12:25)
[2024-02-19] MEDS: LACTATED RINGERS 1000ML 1,000 ML 999 ML IV (02:32)
--- NOTE | 2024-02-19 03:16 | PC.NURSE ---
call placed to house for bed assignment. dx: hypokalemia, altered mental status. admit to hospitalist.
--- NOTE | 2024-02-19 03:26 | EXP.HP ---
History of Present Illness *Admission Date: 02/19/24 *Reason for visit:: AMS *History of present illness: This is a 58-year-old male without significant past medical history presents for erratic behavior, altered mental status, intoxication. On my assessment patient under effects of sedation and family was not available therefore history is limited. Data was collected from ED documentation: Per ED physician: History obtained from patient and . In brief, patient has been losing weight over the last year and has lost approximately 80 to 90 pounds without really trying. He has been otherwise completely normal until late December when he began acting erratically. He has not been sleeping more than an hour or 2 at a time for the last month. He has been seeing drugs including LSD and marijuana. He has been making threatening statements towards his and his 's family including threatening to kill her with his gun. Cording to his , he has been having paranoid delusions. She reports that she does not feel safe being around him alone. She has involved the police regarding this. She is very concerned about his health because this is not like him at all and he seems to have had a relatively sudden break. She reports that his brother had a similar break about 2 years ago and was diagnosed with bipolar disease at that time. The patient himself has been depressed and on antidepressants before, but otherwise has no psychiatric history. Patient reports that he took LSD around 12 hours ago prior to his flight back from [facility]. He reports that he smoked some marijuana before coming to the ER. It is only thing that helps him sleep. He reports that he did have some transient chest pain when he was feeling agitated earlier this evening but currently denies any chest pain abdominal pain shortness of breath headache vision changes etc. When talking with patient, he is very difficult to follow, has flight of ideas, has difficulty answering questions coherently. Per ED triage nurse: Pt to ED with c/o left sided chest pain with exertion, that has now resolved, and blood in urine. Upon arrival stated that pt has not been himself for approx. 21 days. stating he has been extremely paranoid, accusing her of cheating and plotting to kill him. reports pt has threatened to shoot her in the face , and kill her multiple times. reports their son took his guns away and locked them up at his house. Pt left on a whim Thursday, without telling her to go to [place] and returned today. Pt reports he took LSD this morning in order to relax him to get on the plane. Pt reports he smoked marijuana shortly before coming to ED [facility]. and pt report that pt has not been sleeping for the past 21 days, and has not been bathing, eating or drinking either. stated that their daughter went off to college shortly before all of this started. reports that she has been trying to get him to go to the doctor but he has refused. reports pt has been on fenestride for approx 3 months and when she called the pts doctor they told her that this medicine can cause severe depression so she took the medicine away. Pt reports hx of asthma and prostate issues. [facility] Disclaimer: The information contained in this section may have been updated after the patient was seen, as this information can be updated by other users. Medical History (Updated 02/19/24 @ 15:42 by Nayely Gregory APRN) BPH (benign prostatic hyperplasia) Depression Anxiety Asthma Hyperlipidemia Hypertension Social History (Updated 02/19/24 @ 04:09 by Katelyn Ren RN) Smoking Status: Never smoker alcohol intake: never substance use type: denies use current occupational status: employed Travel in the last 8 weeks: None household members: family housing: house current occupation: [employer] caffeine: Yes Review of Systems Review of Systems Review of systems:: unable to obtain Meds Home Medications and Allergies Home Medications ?Medication ?Instructions ?Recorded ?Confirmed ?Type finasteride 5 mg tablet 5 mg PO DAILY 01/27/24 02/19/24 History tamsulosin 0.4 mg capsule 0.4 mg PO HS 02/19/24 02/19/24 History New Prescriptions to Start Prescriptions: Allergies Allergy/AdvReac Type Severity Reaction Status Date / Time No Known Allergies Allergy Verified 12/10/21 13:24 Exam Data for Last 24 hours Vital signs and Labs for Last 24 Hours: Temp Pulse Resp BP Pulse Ox O2 Del Method 98.4 F 72 16 127/88 96 Room Air 02/18/24 23:44 02/19/24 03:00 02/19/24 03:00 02/19/24 03:00 02/19/24 02:30 02/18/24 23:44 Laboratory Results - last 24 hr 02/18/24 00:00: HIV 1&2 Antibody Rapid Nonreactive 02/19/24 00:00: WBC 8.0, RBC 5.39, Hgb 15.8, Hct 50.1, MCV 93.0, MCH 29.2, MCHC 31.4 L, RDW 13.0, Plt Count 241, MPV 8.6, Neut % (Auto) 64.8, Lymph % (Auto) 24.9, [place] % (Auto) 9.1, Eos % (Auto) 0.6, Baso % (Auto) 0.5, Neut # (Auto) 5.2, Lymph # (Auto) 2.0, [place] # (Auto) 0.7, Eos # (Auto) 0.1, Baso # (Auto) 0.0, PT 11.0, INR 0.98, Sodium 138, Potassium 2.3 L*, Chloride 97 L, Carbon Dioxide 35 H, Anion Gap 8.3, BUN 13, Creatinine 0.90, Estimated Creat Clear 93, Estimated GFR 87, Est GFR ( Amer) 105, Glucose 130 H, Calcium 9.5, Magnesium 1.9, Total Bilirubin 3.4 H, AST 57, ALT 39, Alkaline Phosphatase 67, Troponin I < 0.01, Total Protein 7.5, Albumin 4.6, Globulin 2.9, Albumin/Globulin Ratio 1.6, Lipase 211, Salicylates < 1.0 L, Acetaminophen < 10 L, Plasma/Serum Alcohol < 10 02/19/24 00:21: Urine Color Dark yellow, Urine Appearance Clear, Urine pH 6.0, Ur Specific Ord >= 1.030, Urine Protein 2+ A, Urine Glucose (UA) Negative, Urine Ketones 2+, Urine Blood Negative, Urine Nitrate Negative, Urine Bilirubin Negative, Urine Urobilinogen 2.0, Ur Leukocyte Esterase Negative, Urine WBC 3-5, Ur Squamous Epith Cells Occasional, Urine Bacteria Trace, Urine Mucus 1+, Urine Opiates Screen Negative, Urine Methadone Screen Negative, Ur Barbituates Screen Negative, Ur Phencyclidine Scrn Negative, Ur Amphetamines Screen Negative, U Benzodiazepines Scrn Negative, Urine Cocaine Screen Negative, U Marijuana (THC) Screen Positive H 02/19/24 02:10: Potassium 2.0 L*, Magnesium 1.9 I & O for Last 24 hours: Intake & Output 09/02/17/24 02/18/24 02/19/24 23:59 23:59 23:59 23:59 Weight 72.575 kg Constitutional Constitutional: obtunded *Routine HEENT Exam Head: Present normocephalic Eye: Present EOMI and PERRL ENT: Present mucous membranes moist *Routine Neck Exam Neck: Present supple; Absent lymphadenopathy *Routine Respiratory Exam Respiratory: Present CTA bilaterally, normal respiratory effort and symmetric chest movement; Absent respiratory distress *Routine Cardiovascular Exam Cardiovascular: Present RRR, Normal S1, Normal S2 and bradycardia *Routine Abdominal Exam Abdominal: Present soft and normoactive bowel sounds; Absent tenderness *Routine Rectal Exam Rectal:: deferred *Routine Genitalia Exam Genitalia:: deferred *Routine Extremities Exam Extremities: Absent cyanosis, clubbing or edema *Routine Skin Exam Skin: Present warm; Absent rash *Routine Neurological Exam Neurological: Present altered mental status Routine Psychiatric Exam Psychiatric: Present unable to assess H&P: Result Imaging and Cardiology CT scan - head: Status: image reviewed by me, Preliminary report and final report CT scan - chest: Status: image reviewed by me, Preliminary report and final report CT scan - abdomen: Status: image reviewed by me, Preliminary report and final report Assessment and Plan *Assessment and plan (1) Altered mental status: Status: Acute Qualifiers: Altered mental status type: delirium Qualified Code(s): R41.0 - Disorientation, unspecified Category: Medical Code(s): R41.82 - Altered mental status, unspecified (2) Hypokalemia: Status: Acute Category: Medical Code(s): E87.6 - Hypokalemia (3) Cannabis intoxication with delirium: Status: Acute Category: Medical Code(s): F12.921 - Cannabis use, unspecified with intoxication delirium (4) Delusions: Status: Acute Category: Medical Code(s): F22 - Delusional disorders (5) BPH (benign prostatic hyperplasia): Status: Acute Qualifiers: Lower urinary tract symptom presence: unspecified whether lower urinary tract symptoms present Qualified Code(s): N40.0 - Benign prostatic hyperplasia without lower urinary tract symptoms Category: Medical Code(s): N40.0 - Benign prostatic hyperplasia without lower urinary tract symptoms (6) Hypertension: Status: Acute Qualifiers: Hypertension type: unspecified Qualified Code(s): I10 - Essential (primary) hypertension Category: Medical Code(s): I10 - Essential (primary) hypertension (7) Hyperlipidemia: Status: Acute Qualifiers: Hyperlipidemia type: unspecified Qualified Code(s): E78.5 - Hyperlipidemia, unspecified Category: Medical Code(s): E78.5 - Hyperlipidemia, unspecified Plan 58-year-old male without significant past medical history presents for psychiatric changes over the last month including erratic behavior, delusional thoughts, verbally abusive/homicidal threats, extremely poor sleep, anxiety agitation, disorganized/delusional thoughts. on arrival patient was agitated therefore 2.5 droperidol, 50 of Benadryl, 2 of Ativan was given for agitation and anxiety. Laboratory workup independently interpreted by me and significant for severe hypokalemia, 2.0, urinalysis positive for marijuana, normal renal function. CT head/thorax and pelvis shows no evidence of intracranial lesion, no intra-abdominal or intrathoracic abnormality to explain symptoms. there is a report of cholelithiasis without acute cholecystitis. Findings discussed with ED. Agreed for inpatient monitoring and further work up. Plan as follow: AMS with delusion and delirium: cannabis intoxication delusion: -Admit patient for inpatient monitoring. On continuous cardiac telemetry Continues IV potassium slow infusion replacement. Patient underwent 3 rounds of 10 mEq. Last potassium 2.8 Consistent precautions CIWA. Behavioral consult Supportive care close monitoring. Patient denies suicide or homicidal Vital signs per unit. Repeat labs in the morning We will reapproach and reassess patient when mentally improves when he is off sedation. Patient might need inpatient psych eval -History of BPH hypertension hyperlipidemia: Condition reviewed stable Lovenox for DVT prophylaxis. On Protonix for GI bleed protection Full code Rounded on patient after nurse practitioner. Personally examined and interviewed patient. Agree with exam findings and care plan as documented. Patient expressing tangential and pressured speech. Flight of ideas during interview. Evaluated by behavioral health. Patient appears frankly manic. Perseverating/obsessing about where his firearm is that his has taken in the hidden for his safety and hers. Has poor insight into the fact that he is manic. Reports long periods of staying awake with minimal sleeping for days on end. Admits to intermittent LSD usage. Helps him be more clear and addresses his depression. Has driven a few times to [place] with stopping only once. Extreme spending, recently bought a muscle. Recently placed on disability for asthma and arthritis. Burning through saved finances. Patient's potassium showing slow improvement. Has not been able to take oral replacement. Pulled out his IV. Potassium this morning 2.6. Replacing with 40 mEq every 4 hours with repeat lab this afternoon to monitor for improvement. Goal potassium greater than 3. Behavioral health evaluated for involuntary hold and placement. Recommends referral to inpatient psych facility for further management
--- NOTE | 2024-02-19 03:45 | PC.NURSE ---
pt arrived to floor via stretcher @03:45
[2024-02-19 04:10] LABS: Troponin I < 0.01 ng/ml (0.00-0.034)
[2024-02-19] MEDS: 0.9 % SODIUM CHLORIDE 1000ML 1,000 ML 50 ML IV (04:47)
[2024-02-19 05:53] LABS: Basophils % 0.4 % (0.1-2.0); Eosinophils # 0.1 K/mm3 (0.0-0.4); Hematocrit 41.2 % (42.0-52.0); Lymphocytes # 1.3 K/mm3 (0.7-4.5); Lymphocytes % 16.5 % (10-50); Mean Corpuscular Hemoglobin 30.6 pg (27.0-31.2); Mean Corpuscular Volume 92.7 fl (80-94); Mean Platelet Volume 7.8 fl (7.4-10.4); Monocytes # 0.5 K/mm3 (0.1-1.0); Monocytes % 6.2 % (1.7-9.3); Neutrophils # 6.1 K/mm3 (1.8-7.8); Neutrophils % 75.8 % (37.0-80.0); Platelet Count 204 K/mm3 (142-424); Red Blood Count 4.44 M/mm3 (4.60-6.20); White Blood Count 8.1 K/mm3 (4.8-10.8)
[2024-02-19 05:59] LABS: Hemoglobin 13.6 g/dL (14.1-18.0)
[2024-02-19 06:00] LABS: Alanine Aminotransferase 27 U/L (12-78); Albumin Level 3.3 g/dl (3.5-5.0); Albumin/Globulin Ratio 1.3 (1.1-1.8); Alkaline Phosphatase 47 U/L (38-126); Anion Gap 2.8 mEq/L (5-15); Aspartate Amino Transferase 44 U/L (17-59); Bilirubin,Total 2.6 mg/dl (0.2-1.3); Blood Urea Nitrogen 10 mg/dl (9-20); Calcium 8.6 mg/dl (8.4-10.2); Carbon Dioxide 37 mmol/L (22.0-30.0); Chloride 100 mmol/L (98-107); Creatinine Clearance Estimated 105 mL/min (50-200); Estimated Glomerular Filt Rate 100 ml/min (>60); GFR (African American) 121 ML/MIN (>60); Globulin 2.6 g/dL (1.3-3.2); Glucose 99 mg/dl (74-100); Magnesium 1.9 mg/dl (1.6-2.3); Sodium 137 mmol/L (136-145); Total Protein,Serum 5.9 g/dl (6.3-8.2)
[2024-02-19 06:09] LABS: Potassium 2.8 mmoL/L (3.5-5.1)
[2024-02-19 06:16] LABS: Troponin I < 0.01 ng/ml (0.00-0.034)
[2024-02-19] MEDS: 0.9% NaCl w/40mEq KCL 1,000 ML 100 ML IV (06:19)
--- NOTE | 2024-02-19 06:54 | PC.NURSE ---
Pt alert to person and place but becomes more confused at times. Pt has rested since arriving to floor. Ambulated to BR with standby assist. Bed alarm on for pt safety. Call light within reach.
--- NOTE | 2024-02-19 08:26 | HMH.PHAINT1 ---
Pharmacy Intervention Comments: HOME MEDICATION LIST VERIFIED USING LIST FROM OUTPATIENT PHARMACY AND PHYSICIAN OFFICE
[2024-02-19 11:36] LABS: Chloride 99 mmol/L (98-107); Sodium 138 mmol/L (136-145)
[2024-02-19 11:39] LABS: Anion Gap 4.6 mEq/L (5-15); Blood Urea Nitrogen 9 mg/dl (9-20); Calcium 8.6 mg/dl (8.4-10.2); Carbon Dioxide 37 mmol/L (22.0-30.0); Creatinine Clearance Estimated 120 mL/min (50-200); Estimated Glomerular Filt Rate 116 ml/min (>60); GFR (African American) 141 ML/MIN (>60); Glucose 93 mg/dl (74-100)
[2024-02-19 11:44] LABS: Potassium 2.6 mmoL/L (3.5-5.1)
[2024-02-19] MEDS: THIAMINE 100MG TABLET 100 MG PO (12:55)
[2024-02-19] MEDS: ENOXAPARIN 40MG/0.4ML SYRINGE 40 MG SQ (12:55)
[2024-02-19] MEDS: FOLIC ACID 1MG TABLET 1 MG PO (12:55)
[2024-02-19] MEDS: FINASTERIDE 5MG TABLET 5 MG PO (13:01)
--- NOTE | 2024-02-19 15:26 | EXP.BH.CONS ---
History of Present Illness *Admission Date: 02/19/24 *Reason for visit:: mental illness *History of present illness: Patient interviewed in his room. -at the beginning he appeared to be asleep and collateral information was obtained from his . -she states that this all started last month -that January 03-; they went on a cruise; everything was good; they were happy; planning more trips -then January 17; their anniversary of 35 years; he started to get really angry; cause he thought that she was going to get angry over their daughter going back to college early -that continued to have anger issues -then on the [place]; he got mad while they were there; and walked home; she followed him in the car -and the next day he took off without his cell phone -that he was gone for 9 hours; they called the police; had everyone out looking for him -when he showed back up -then the next day he was gone for 19 hours; when back home he said that he was just sitting in parking lots; that this happened several nights in a row -just him taking off; and coming back hours later -she states that he would blame her for things; that she is crazy; and he agreed to come to the hospital to get checked out but only if she went to [place] first to see her mom -she agreed and went down there -and he came up here to the ER on the 25 of January and they did nothing -then she states that after that he stopped eating and stopped sleeping -that he would only sleep 1-2 hours at a time; then up for days -would send out hundreds of texts to people in [place] -that everything was her fault and she was conspiring things against him -she states that then on the 26 of January; he took off; drove all the way to [place] -that he was there til January 31 when he flew home -the car is still down there -and his son picked them up from the air port -she came home from [place] on February 07 -then the day after he was really upset and asking about his gun; he would take this with him when he went to sit in the parking lots in his truck -she states that he went irate on her -took the car and he went to [place] -and on the way there he got in his head that she was plotting to kill him He then wakes up; and states that she is telling the story all wrong. -that he has just been listening to see what she will say; but he can't listen anymore -cause she is lying about everything -that he went to [place] to get his gun; and to square off with her father -cause her father had treated her bad her whole life; and at the end one of them would ; then kill themselves; and she would be left with everything -he states that everything she said above is not true -that for the past 35 years he has been his 's pet -and he is tired of this -that he is on edge all the time; cause of his 's attitude He states that the reason he can't sleep is because his would come in his daughters room (he has been sleeping there since she went to college this time) -that she would come in there and try to get his keys out of his pocket; or his vape pen -or looking through drawers for stuff -not sure what she was looking for -he states that he did tell her what he was going to do when he left for [facility] so he doesn't know why she is acting like it was spontaneous -that the suspender cutter in [facility] thought he was trying to kidnap a homeless man; but he was just trying to take him to get him something to eat -states that the homeless man's name was Barry -he states that the whole reason he went to [facility] was to get away from his -that he is not crazy -but she is making him crazy -and he had to get away from her -that he worries himself over everything -this is when he stopped eating -cause he was too nervous to eat -worried about where his gun was ( had taken this to [place] to her mom's house) cause of how he was acting -when he came back from [facility] he bought a [place]; states that he has 10 cars He was blocking the door at home -not letting anyone in the house -he states that he thought she was going to kill him -that he was laying on the floor; and she was standing above him all sly -she states that it was her laying on the floor; and him standing over her -he states that she is just a mean person and never tells the truth He has been taking LSD. -he admits to this -he states that he only takes a micro dose; about 10% of the pill when he gets them -that it clarifies his mind -he has been doing this maybe 3-4 times per month for the past 5 years or so -and that his vape is a THC vape -he has recently started mixing the LSD and the THC vapes; using both at the same times; per wifes report He denies any SI/HI. -denies any AVH -however; he has threatened to 'blow their brains out' -when speaking to his father in law; and to his -that when he found out about taking gun to [place]; this is when he started with the idea that she was going to kill him -she has text message of the treats that he has made against her His states that he cannot go home. -cause he thinks she is tryign to kill him -and that she is cheating on him -and cause he is still threatening to harm her -that he is not in his right mind -and doesn't understand the truth when someone is telling it to him [facility] Disclaimer: The information contained in this section may have been updated after the patient was seen, as this information can be updated by other users. Medical History (Updated 02/19/24 @ 15:42 by Nayely Gregory APRN) BPH (benign prostatic hyperplasia) Depression Anxiety Asthma Hyperlipidemia Hypertension Social History (Updated 02/19/24 @ 04:09 by Katelyn Ren RN) Smoking Status: Never smoker alcohol intake: never substance use type: denies use current occupational status: employed Travel in the last 8 weeks: None household members: family housing: house current occupation: [employer] caffeine: Yes Review of Systems Review of Systems Review of systems:: other Meds Home Medications and Allergies Home Medications ?Medication ?Instructions ?Recorded ?Confirmed ?Type finasteride 5 mg tablet 5 mg PO DAILY 01/27/24 02/19/24 History tamsulosin 0.4 mg capsule 0.4 mg PO HS 02/19/24 02/19/24 History New Prescriptions to Start Prescriptions: Allergies Allergy/AdvReac Type Severity Reaction Status Date / Time No Known Allergies Allergy Verified 12/10/21 13:24 Assessment and Plan *Assessment and plan (1) Drug-induced psychotic disorder: Status: Acute Category: Medical Code(s): F19.959 - Other psychoactive substance use, unspecified with psychoactive substance-induced psychotic disorder, unspecified Plan Have patient assessed by [facility] for referral to inpatient treatment related to psychosis. -he is not thinking clearly -cannot rationalize things I do not think that it is safe for to transport him to a facility given his hostility towards her. -through the entire interview he was cussing at her -calling her names -very edgy Consider starting him on Zyprexa 5mg at bedtime if he remains in hospital r/t medical clearance.
--- NOTE | 2024-02-19 15:37 | CARE MANAGER ---
Addendum entered by Shannan Gregory RN 02/19/24 19:02: Late Entry 1730: [facility] to do telehealth shortly. They are going to contact the and then bunk house worker to help set up zoom. Addendum entered by Shannan Gregory RN 02/19/24 16:07: Form 711 completed by Correctional Officer Lieutenant and returned. Contacted [facility] at [phone]. They opened chart and forms 710 and 711 were sent to them. Awaiting to hear back. Original Note: Patient is demonstrating psychosis with donavon. [facility] to need involuntary hold. Form 710 completed and sent to apprenticeship consultant for signature and awaiting return of forms to initiate evaluation. KEANU Sykes
[2024-02-19 16:27] LABS: Chloride 97 mmol/L (98-107)
[2024-02-19 16:28] LABS: Sodium 138 mmol/L (136-145)
[2024-02-19 16:31] LABS: Anion Gap 9.8 mEq/L (5-15); Blood Urea Nitrogen 9 mg/dl (9-20); Calcium 9.4 mg/dl (8.4-10.2); Carbon Dioxide 34 mmol/L (22.0-30.0); Creatinine Clearance Estimated 105 mL/min (50-200); Estimated Glomerular Filt Rate 100 ml/min (>60); GFR (African American) 121 ML/MIN (>60); Glucose 165 mg/dl (74-100)
[2024-02-19 16:33] LABS: Potassium 2.8 mmoL/L (3.5-5.1)
--- NOTE | 2024-02-19 17:47 | PC.NURSE ---
pt slept until around 1130 this shift. when pt woke up he was alert and oriented x4, cooperative and anxious. held pt meds due to pt being asleep, given after pt woke up. patient pulled IV out this shift, notified . pt walked in hallway to his erratically this shift, nurse pr manager and MD notified and assisted him back to his room. potassium has increased to 2.8 this shift per PO potassium. pt remains normal sinus on tele and room air. pt is cooperative at this time and quite talkative. he is tolerating a regular diet. was at bedside this afternoon which made him anxious. no further requests at this time. call light within reach.
--- NOTE | 2024-02-19 22:03 | P.DS_ITS ---
General Admission date:: 02/19/24 Discharge date: 02/19/24 HPI HPI HPI: Patient interviewed in his room. -at the beginning he appeared to be asleep and collateral information was obtained from his . -she states that this all started last month -that January 03-; they went on a cruise; everything was good; they were happy; planning more trips -then January 17; their anniversary of 35 years; he started to get really angry; cause he thought that she was going to get angry over their daughter going back to college early -that continued to have anger issues -then on the [place]; he got mad while they were there; and walked home; she followed him in the car -and the next day he took off without his cell phone -that he was gone for 9 hours; they called the police; had everyone out looking for him -when he showed back up -then the next day he was gone for 19 hours; when back home he said that he was just sitting in parking lots; that this happened several nights in a row -just him taking off; and coming back hours later -she states that he would blame her for things; that she is crazy; and he agreed to come to the hospital to get checked out but only if she went to [place] first to see her mom -she agreed and went down there -and he came up here to the ER on the 25 of January and they did nothing -then she states that after that he stopped eating and stopped sleeping -that he would only sleep 1-2 hours at a time; then up for days -would send out hundreds of texts to people in [facility] -that everything was her fault and she was conspiring things against him -she states that then on the 26 of January; he took off; drove all the way to [place] -that he was there til January 31 when he flew home -the car is still down there -and his son picked them up from the air port -she came home from [place] on February 07 -then the day after he was really upset and asking about his gun; he would take this with him when he went to sit in the parking lots in his truck -she states that he went irate on her -took the car and he went to [place] -and on the way there he got in his head that she was plotting to kill him He then wakes up; and states that she is telling the story all wrong. -that he has just been listening to see what she will say; but he can't listen anymore -cause she is lying about everything -that he went to [place] to get his gun; and to square off with her father -cause her father had treated her bad her whole life; and at the end one of them would ; then kill themselves; and she would be left with everything -he states that everything she said above is not true -that for the past 35 years he has been his 's pet -and he is tired of this -that he is on edge all the time; cause of his 's attitude He states that the reason he can't sleep is because his would come in his daughters room (he has been sleeping there since she went to college this time) -that she would come in there and try to get his keys out of his pocket; or his vape pen -or looking through drawers for stuff -not sure what she was looking for -he states that he did tell her what he was going to do when he left for [facility] so he doesn't know why she is acting like it was spontaneous -that the behavioral health therapist in [facility] thought he was trying to kidnap a homeless man; but he was just trying to take him to get him something to eat -states that the homeless man's name was Barry -he states that the whole reason he went to [facility] was to get away from his -that he is not crazy -but she is making him crazy -and he had to get away from her -that he worries himself over everything -this is when he stopped eating -cause he was too nervous to eat -worried about where his gun was ( had taken this to [place] to her mom's house) cause of how he was acting -when he came back from [facility] he bought a [employer]; states that he has 10 cars He was blocking the door at home -not letting anyone in the house -he states that he thought she was going to kill him -that he was laying on the floor; and she was standing above him all sly -she states that it was her laying on the floor; and him standing over her -he states that she is just a mean person and never tells the truth He has been taking LSD. -he admits to this -he states that he only takes a micro dose; about 10% of the pill when he gets them -that it clarifies his mind -he has been doing this maybe 3-4 times per month for the past 5 years or so -and that his vape is a THC vape -he has recently started mixing the LSD and the THC vapes; using both at the same times; per wifes report He denies any SI/HI. -denies any AVH -however; he has threatened to 'blow their brains out' -when speaking to his father in law; and to his -that when he found out about taking gun to [place]; this is when he started with the idea that she was going to kill him -she has text message of the treats that he has made against her His states that he cannot go home. -cause he thinks she is tryign to kill him -and that she is cheating on him -and cause he is still threatening to harm her -that he is not in his right mind -and doesn't understand the truth when someone is telling it to him Hospital Course Hospital Course Hospital Course: Patient was homicidal, patient was assessed by LEONOR SHAH for referral to [facility] treatment related to psychosis, patient was recommended for inpatient psych admission and was discharged in stable condition, please same date H&P for further recommendations Exam Data for Last 24 hours Vital signs and Labs for Last 24 Hours: Temp Pulse Resp BP Pulse Ox O2 Del Method 98.6 F 87 20 162/89 H 99 Room Air 02/19/24 20:00 02/19/24 20:00 02/19/24 20:00 02/19/24 20:00 02/19/24 20:00 02/19/24 21:00 Laboratory Results - last 24 hr 02/18/24 00:00: HIV 1&2 Antibody Rapid Nonreactive 02/19/24 00:00: WBC 8.0, RBC 5.39, Hgb 15.8, Hct 50.1, MCV 93.0, MCH 29.2, MCHC 31.4 L, RDW 13.0, Plt Count 241, MPV 8.6, Neut % (Auto) 64.8, Lymph % (Auto) 24.9, [place] % (Auto) 9.1, Eos % (Auto) 0.6, Baso % (Auto) 0.5, Neut # (Auto) 5.2, Lymph # (Auto) 2.0, [place] # (Auto) 0.7, Eos # (Auto) 0.1, Baso # (Auto) 0.0, PT 11.0, INR 0.98, Sodium 138, Potassium 2.3 L*, Chloride 97 L, Carbon Dioxide 35 H , Anion Gap 8.3, BUN 13, Creatinine 0.90, Estimated Creat Clear 93, Estimated GFR 87, Est GFR ( Amer) 105, Glucose 130 H, Calcium 9.5, Magnesium 1.9, Total Bilirubin 3.4 H, AST 57, ALT 39, Alkaline Phosphatase 67, Troponin I < 0.01, Total Protein 7.5, Albumin 4.6, Globulin 2.9, Albumin/Globulin Ratio 1.6, Lipase 211, Salicylates < 1.0 L, Acetaminophen < 10 L, Plasma/Serum Alcohol < 10 02/19/24 00:21: Urine Color Dark yellow, Urine Appearance Clear, Urine pH 6.0, Ur Specific [place] >= 1.030, Urine Protein 2+ A, Urine Glucose (UA) Negative, Urine Ketones 2+, Urine Blood Negative, Urine Nitrate Negative, Urine Bilirubin Negative, Urine Urobilinogen 2.0, Ur Leukocyte Esterase Negative, Urine WBC 3-5, Ur Squamous Epith Cells Occasional, Urine Bacteria Trace, Urine Mucus 1+, Urine Opiates Screen Negative, Urine Methadone Screen Negative, Ur Barbituates Screen Negative, Ur Phencyclidine Scrn Negative, Ur Amphetamines Screen Negative, U Benzodiazepines Scrn Negative, Urine Cocaine Screen Negative, U Marijuana (THC) Screen Positive H 02/19/24 02:10: Potassium 2.0 L*, Magnesium 1.9 02/19/24 03:39: Troponin I < 0.01 02/19/24 05:32: WBC 8.1, RBC 4.44 L, Hgb 13.6 L D, Hct 41.2 L, MCV 92.7, MCH 30.6, MCHC 33.0, RDW 13.0, Plt Count 204, MPV 7.8, Neut % (Auto) 75.8, Lymph % (Auto) 16.5, [place] % (Auto) 6.2, Eos % (Auto) 1.0, Baso % (Auto) 0.4, Neut # (Auto) 6.1, Lymph # (Auto) 1.3, [place] # (Auto) 0.5, Eos # (Auto) 0.1, Baso # (Auto) 0.0, Sodium 137, Potassium 2.8 L* D, Chloride 100, Carbon Dioxide 37 H, Anion Gap 2.8 L, BUN 10, Creatinine 0.80, Estimated Creat Clear 105, Estimated GFR 100, Est GFR ( Amer) 121, Glucose 99 D, Calcium 8.6, Magnesium 1.9, Total Bilirubin 2.6 H, AST 44, ALT 27 D, Alkaline Phosphatase 47, Troponin I < 0.01, Total Protein 5.9 L, Albumin 3.3 L D, Globulin 2.6, Albumin/Globulin Ratio 1.3 02/19/24 11:15: Sodium 138, Potassium 2.6 L*, Chloride 99, Carbon Dioxide 37 H, Anion Gap 4.6 L, BUN 9, Creatinine 0.70, Estimated Creat Clear 120, Estimated GFR 116, Est GFR ( Amer) 141, Glucose 93, Calcium 8.6 02/19/24 16:13: Sodium 138, Potassium 2.8 L*, Chloride 97 L, Carbon Dioxide 34 H , Anion Gap 9.8, BUN 9, Creatinine 0.80, Estimated Creat Clear 105, Estimated GFR 100, Est GFR ( Amer) 121, Glucose 165 H D, Calcium 9.4 I & O for Last 24 hours: Intake & Output 02/16/24 02/17/24 02/18/24 02/19/24 23:59 23:59 23:59 23:59 Intake Total 240 / 240 Output Total 0 / 0 Balance 240 / 240 Weight 72.575 kg 72.575 kg Results Data Completed and Pending Labs on day of discharge: Labs from last 24 hours 02/19/24 02/19/24 02/19/24 16:13 11:15 05:32 WBC 8.1 RBC 4.44 L Hgb 13.6 L D Hct 41.2 L MCV 92.7 MCH 30.6 MCHC 33.0 RDW 13.0 Plt Count 204 MPV 7.8 Neut % (Auto) 75.8 Lymph % (Auto) 16.5 [place] % (Auto) 6.2 Eos % (Auto) 1.0 Baso % (Auto) 0.4 Neut # (Auto) 6.1 Lymph # (Auto) 1.3 [place] # (Auto) 0.5 Eos # (Auto) 0.1 Baso # (Auto) 0.0 PT INR Sodium 138 138 137 Potassium 2.8 L* 2.6 L* 2.8 L* D Chloride 97 L 99 100 Carbon Dioxide 34 H 37 H 37 H Anion Gap 9.8 4.6 L 2.8 L BUN 9 9 10 Creatinine 0.80 0.70 0.80 Estimated Creat Clear 105 120 105 Estimated GFR 100 116 100 Est GFR ( Amer) 121 141 121 Glucose 165 H D 93 99 D Calcium 9.4 8.6 8.6 Magnesium 1.9 Total Bilirubin 2.6 H AST 44 ALT 27 D Alkaline Phosphatase 47 Troponin I < 0.01 Total Protein 5.9 L Albumin 3.3 L D Globulin 2.6 Albumin/Globulin Ratio 1.3 Lipase Urine Color Urine Appearance Urine pH Ur Specific [place] Urine Protein Urine Glucose (UA) Urine Ketones Urine Blood Urine Nitrate Urine Bilirubin Urine Urobilinogen Ur Leukocyte Esterase Urine WBC Ur Squamous Epith Cells Urine Bacteria Urine Mucus Salicylates Urine Opiates Screen Urine Methadone Screen Acetaminophen Ur Barbituates Screen Ur Phencyclidine Scrn Ur Amphetamines Screen U Benzodiazepines Scrn Urine Cocaine Screen U Marijuana (THC) Screen Plasma/Serum Alcohol HIV 1&2 Antibody Rapid 02/19/24 02/19/24 02/19/24 03:39 02:10 00:21 WBC RBC Hgb Hct MCV MCH MCHC RDW Plt Count MPV Neut % (Auto) Lymph % (Auto) [place] % (Auto) Eos % (Auto) Baso % (Auto) Neut # (Auto) Lymph # (Auto) [place] # (Auto) Eos # (Auto) Baso # (Auto) PT INR Sodium Potassium 2.0 L* Chloride Carbon Dioxide Anion Gap BUN Creatinine Estimated Creat Clear Estimated GFR Est GFR ( Amer) Glucose Calcium Magnesium 1.9 Total Bilirubin AST ALT Alkaline Phosphatase Troponin I < 0.01 Total Protein Albumin Globulin Albumin/Globulin Ratio Lipase Urine Color Dark yellow Urine Appearance Clear Urine pH 6.0 Ur Specific [place] >= 1.030 Urine Protein 2+ A Urine Glucose (UA) Negative Urine Ketones 2+ Urine Blood Negative Urine Nitrate Negative Urine Bilirubin Negative Urine Urobilinogen 2.0 Ur Leukocyte Esterase Negative Urine WBC 3-5 Ur Squamous Epith Cells Occasional Urine Bacteria Trace Urine Mucus 1+ Salicylates Urine Opiates Screen Negative Urine Methadone Screen Negative Acetaminophen Ur Barbituates Screen Negative Ur Phencyclidine Scrn Negative Ur Amphetamines Screen Negative U Benzodiazepines Scrn Negative Urine Cocaine Screen Negative U Marijuana (THC) Screen Positive H Plasma/Serum Alcohol HIV 1&2 Antibody Rapid 02/19/24 02/18/24 00:00 00:00 WBC 8.0 RBC 5.39 Hgb 15.8 Hct 50.1 MCV 93.0 MCH 29.2 MCHC 31.4 L RDW 13.0 Plt Count 241 MPV 8.6 Neut % (Auto) 64.8 Lymph % (Auto) 24.9 [place] % (Auto) 9.1 Eos % (Auto) 0.6 Baso % (Auto) 0.5 Neut # (Auto) 5.2 Lymph # (Auto) 2.0 [place] # (Auto) 0.7 Eos # (Auto) 0.1 Baso # (Auto) 0.0 PT 11.0 INR 0.98 Sodium 138 Potassium 2.3 L* Chloride 97 L Carbon Dioxide 35 H Anion Gap 8.3 BUN 13 Creatinine 0.90 Estimated Creat Clear 93 Estimated GFR 87 Est GFR ( Amer) 105 Glucose 130 H Calcium 9.5 Magnesium 1.9 Total Bilirubin 3.4 H AST 57 ALT 39 Alkaline Phosphatase 67 Troponin I < 0.01 Total Protein 7.5 Albumin 4.6 Globulin 2.9 Albumin/Globulin Ratio 1.6 Lipase 211 Urine Color Urine Appearance Urine pH Ur Specific [place] Urine Protein Urine Glucose (UA) Urine Ketones Urine Blood Urine Nitrate Urine Bilirubin Urine Urobilinogen Ur Leukocyte Esterase Urine WBC Ur Squamous Epith Cells Urine Bacteria Urine Mucus Salicylates < 1.0 L Urine Opiates Screen Urine Methadone Screen Acetaminophen < 10 L Ur Barbituates Screen Ur Phencyclidine Scrn Ur Amphetamines Screen U Benzodiazepines Scrn Urine Cocaine Screen U Marijuana (THC) Screen Plasma/Serum Alcohol < 10 HIV 1&2 Antibody Rapid Nonreactive DS: Diagnosis Discharge Diagnosis (1) Altered mental status: Status: Acute Code(s): R41.82 - Altered mental status, unspecified Qualifiers: Altered mental status type: delirium Qualified Code(s): R41.0 - Disorientation, unspecified (2) Hypokalemia: Status: Acute Code(s): E87.6 - Hypokalemia (3) Cannabis intoxication with delirium: Status: Acute Code(s): F12.921 - Cannabis use, unspecified with intoxication delirium (4) Delusions: Status: Acute Code(s): F22 - Delusional disorders (5) BPH (benign prostatic hyperplasia): Status: Acute Code(s): N40.0 - Benign prostatic hyperplasia without lower urinary tract symptoms Qualifiers: Lower urinary tract symptom presence: unspecified whether lower urinary tract symptoms present Qualified Code(s): N40.0 - Benign prostatic hyperplasia without lower urinary tract symptoms (6) Hypertension: Status: Acute Code(s): I10 - Essential (primary) hypertension Qualifiers: Hypertension type: unspecified Qualified Code(s): I10 - Essential (primary) hypertension (7) Hyperlipidemia: Status: Acute Code(s): E78.5 - Hyperlipidemia, unspecified Qualifiers: Hyperlipidemia type: unspecified Qualified Code(s): E78.5 - Hyperlipidemia, unspecified Meds Home Medications and Allergies Home Medications ?Medication ?Instructions ?Recorded ?Confirmed ?Type finasteride 5 mg tablet 5 mg PO DAILY 01/27/24 02/19/24 History folic acid 1 mg tablet 1 mg PO DAILY 30 days #30 tabs 02/19/24 Rx multivitamin with folic acid 400 1 tab PO 1700 30 days #30 tabs 02/19/24 Rx mcg tablet (Tab-A-Viktor) nicotine 21 mg/24 hr daily 21 mg transdermal DAILYP PRN 02/19/24 Rx transdermal patch Nicotine Cravings 30 days #30 ea pantoprazole 40 mg tablet,delayed 40 mg PO HS 30 days #30 tabs 02/19/24 Rx release tamsulosin 0.4 mg capsule 0.4 mg PO HS 02/19/24 02/19/24 History thiamine mononitrate (vit B1) 100 100 mg PO DAILY 30 days #30 tabs 02/19/24 Rx mg tablet New Prescriptions to Start Prescriptions: folic acid Norman,Irfan multivitamin with folic acid [Tab-A-Viktor] Norman,Irfan nicotine Norman,Irfan pantoprazole Norman,Irfan thiamine mononitrate (vit B1) Norman,Irfan Allergies Allergy/AdvReac Type Severity Reaction Status Date / Time No Known Allergies Allergy Verified 12/10/21 13:24 Discharge Plan Disposition Patient Disposition: Xfer SNF Condition: Good Discharge Order Discharge Orders: Discharge Order (Routine); Ordered 02/19/24 Ordered By: Jasbir Austin Follow up Plan Prescriptions/Medication Reconciliation: New nicotine 21 mg/24 hr Patch 24 Hour 21 mg transdermal DAILYP PRN (Reason: Nicotine Cravings) 30 Days Qty: 30 0RF folic acid 1 mg Tablet 1 mg PO DAILY 30 Days Qty: 30 0RF multivitamin with folic acid [Tab-A-Viktor] 400 mcg Tablet 1 tab PO 1700 30 Days Qty: 30 0RF pantoprazole 40 mg Tablet,Delayed Release (Dr/Ec) 40 mg PO HS 30 Days Qty: 30 0RF thiamine mononitrate (vit B1) 100 mg Tablet 100 mg PO DAILY 30 Days Qty: 30 0RF Continued tamsulosin 0.4 mg capsule 0.4 mg PO HS Patient Comments: TAKE 1 CAPSULE BY MOUTH ONCE DAILY finasteride 5 mg tablet 5 mg PO DAILY Patient Comments: TAKE 1 TABLET BY MOUTH ONCE DAILY Problem Reconciliation Problems Reviewed?: Yes Patient Discharge Instructions ACTIVITY: Ambulate as tolerated DIET: continue same diet Patient Instructions: DI for Delirium Tremens Print Language: Mongolian Providers Primary Care Provider: Provider,Referral Admit Provider: Barry Rapp Attending Provider: Barry Rapp
--- NOTE | 2024-02-20 01:07 | PC.NURSE ---
, Michelle arrived at shift change 1929 - went to pt room, pt demanded she leaves and was very irrate seeing here. Michelle was educated to leave the room for patient and staff safety, in order to deescalate. claims wallet is missing and see last seen at 1500 - wallet wasn't located in patient. House aware and contacted dayshift staff and no one has seen it. Michelle was asked to wait in the waiting room during this process. Later on around 2200 patient had calmed down and remains calm in his room for the night. He is cooperative other than refusing his protonix and multivitamin. He has been willing to take PO K replacement. 0000 Michelle called for an update.
[2024-02-20 01:55] LABS: Chloride 104 mmol/L (98-107); Sodium 139 mmol/L (136-145)
[2024-02-20 01:58] LABS: Blood Urea Nitrogen 6 mg/dl (9-20); Calcium 8.8 mg/dl (8.4-10.2); Carbon Dioxide 34 mmol/L (22.0-30.0); Creatinine Clearance Estimated 105 mL/min (50-200); Estimated Glomerular Filt Rate 100 ml/min (>60); GFR (African American) 121 ML/MIN (>60); Glucose 88 mg/dl (74-100)
--- NOTE | 2024-02-20 02:14 | PC.NURSE ---
reported called to Mar at [facility]. Repeat K 3.0. Dispatch called, officers out on a call and will come when clear.
--- NOTE | 2024-02-20 02:35 | PC.NURSE ---
patient left the floor with officer delores, in route to [facility]. Belongings in a patient bag took with him - passport, pants, shirt, shoes, sunglasses, coins.
[2024-02-20 07:12] LABS: HCV Ab Non Reactive (Non Reactive)
== END 2024-02-20 02:35 ==
LOC: ER 02-19 03:17 → 2ND 02-19 05:01
PROVIDERS: Internal Medicine; Internal Medicine Adolescent Medicine; Nurse Practitioner Family; Admitting Provider Student in an Organized Health Care Education/Training Program; Emergency Provider Emergency Medicine; Visit Provider Student in an Organized Health Care Education/Training Program
DX: E87.6 Hypokalemia (principal); F12.921 Cannabis use, unspecified with intoxication delirium; I10 Essential (primary) hypertension; E78.5 Hyperlipidemia, unspecified; F19.959 Other psychoactive substance use, unspecified with psychoactive substance-induced psychotic disorder, unspecified; R41.0 Disorientation, unspecified; F22 Delusional disorders; N40.0 Benign prostatic hyperplasia without lower urinary tract symptoms; F19.90 Other psychoactive substance use, unspecified, uncomplicated
CPT/HCPCS: 36415; 70470; 71275; 74177; 80048; 80053; 80307; 80320; 80329; 81001; 83690; 83735; 84132; 84484; 85025; 85610; 86803; 87389; 93005; 99291; G0378; J1200; J1650; J1790; J2060; J3480; J7030; J7120; Q9967

== ENCOUNTER 2025-03-09 08:23 | Outpatient (CLI) | payer MEDICARE, BC, SELFPAY ==
[2025-03-09 15:57] LABS: Coronavirus 19, PCR Not Detected (NotDetected); Influenza A, PCR Not Detected (NotDetected); Influenza B, PCR Not Detected (NotDetected)
== END 2025-03-09 23:59 | disposition home or self-care (01) ==
LOC: LAB.DROPOF 03-10 02:51
PROVIDERS: PCP Student in an Organized Health Care Education/Training Program; Visit Provider Student in an Organized Health Care Education/Training Program
DX: J06.9 Acute upper respiratory infection, unspecified (principal)
CPT/HCPCS: 87636